=== PATIENT | male | born 1955 | race Caucasian/White ===

== ENCOUNTER → 2018-07-07 | Outpatient (CLI) | payer BC ==
[~2018-07-07] MED LIST: ASPI-586 PO; CATHETER FLUSH 10 ML SYR IV PRN; CEPH500C PO; EZET10TA23 PO; FAMO-119 PO; HYDR-3820; HYDR-3876 PO; HYDR12.56 PO; LOSA50TA6 PO; NIAC-4 PO; PRAV40TA PO; REGADENOSON 0.4 MG/5 ML SYR (LEXISCAN) IV ONE; SERT100T8 PO; TRAM-21 PO
[2018-07-07 07:57] VITALS: BP 159/91
[2018-07-07 08:08] VITALS: BP 155/95
--- NOTE | 2018-07-07 18:46 | STRESS TEST ---
DATE OF SERVICE: 07/07/2018 LEXISCAN MYOVIEW STRESS TEST REPORT Baseline heart rate is 70. Baseline blood pressure is 163/93. Baseline EKG is sinus rhythm with no ischemic changes. In summary, the patient was injected with 8.08 mCi of technetium-99 Myoview and the resting images were obtained. Then, the patient received 0.4 mg of Lexiscan followed by 28.6 mCi of technetium-99 Myoview. Throughout the test, there were no EKG changes. The resting and stress images were reviewed and compared in the short axis, horizontal long axis, and vertical long axis views. Review of the images showed diaphragmatic attenuation with mild decreased uptake involving the mid to apical inferior wall and inferolateral wall with subtle reversibility. SSS is 5, SDS 5, and TID value 1.0. On the gated images, the left ventricle appeared to be in normal size with normal contractility. Calculated ejection fraction is 60%. CONCLUSION: 1. The patient tolerated the Lexiscan well. 2. Diaphragmatic attenuation with mild decreased uptake involving the mid to apical inferior wall and inferolateral wall with mild reversibility, it could be secondary to the diaphragmatic attenuation. 3. Normal left ventricular size with normal contractility, no segmental wall motion abnormality, calculated ejection fraction 60%. Job ID: [id number] DocumentID: [id number] Dictated Date: 07/07/2018 15:56:59 Marketing Community Liaison Date: 07/07/2018 18:45:48 Dictated By: CARLITO CUELLO MD
== END ==
LOC: CARD 06:33
PROVIDERS: ATTEND Internal Medicine Cardiovascular Disease
DX: I10 Essential (primary) hypertension (principal); E78.2 Mixed hyperlipidemia; E66.9 Obesity, unspecified; Z82.49 Family history of ischemic heart disease and other diseases of the circulatory system; F32.9 Major depressive disorder, single episode, unspecified
CPT/HCPCS: 78452; 93017; 93306

== ENCOUNTER 2022-06-23 12:30 | Inpatient (IN) | payer MEDICARE, OTHER ==
[~2022-06-23] VITALS: Ht 160 cm; Wt 102.0 kg
[~2022-06-23 12:30] MED LIST changes: +ACHYD1T; -CATHETER FLUSH 10 ML SYR IV PRN; -HYDR-3820; -REGADENOSON 0.4 MG/5 ML SYR (LEXISCAN) IV ONE
--- NOTE | 2022-06-23 12:41 | ED GU-Male ---
General Chief Complaint: Abdominal/GI Problems Stated Complaint: N/V; FEVER; SUPRAPUBIC PAIN History of Present Illness Date Seen by Provider: Jun 23, 2022 Time Seen by Provider: 12:39 Initial Comments 67-year-old male presents with "feeling puny" patient reports that for the last 4 days he has had some nausea, vomiting, diarrhea, subjective fever and lower quadrant abdominal pain. He does have a history of diverticulitis. He reports that it seemed to start after he ate some solid. Patient was seen by urgent care yesterday and tested negative for influenza and COVID. Patient reports he has had numerous episodes of vomiting. No reports of cough or sore throat. Allergies and Home Medications Allergies Coded Allergies: clonidine (Unverified Allergy, Unknown, 12/18/14) lisinopril (Unverified Allergy, Unknown, 12/18/14) metoprolol (Unverified Allergy, Unknown, 12/18/14) Patient Home Medication List Home Medication List Reviewed: Yes Aspirin (Aspir 81) 81 Mg Tablet.dr, 81 MG PO, (Reported) Entered as Reported by: JESSICA LOO on 08/24/15 153 Famotidine (Pepcid) 20 Mg Tablet, 20 MG PO DAILY, (Reported) Entered as Reported by: KENDALL SNOWDEN on 12/18/14 1405 Hydrochlorothiazide (Hydrochlorothiazide) 12.5 Mg Tablet, 12.5 MG PO DAILY, (Reported) Entered as Reported by: KENDALL SNOWDEN on 12/18/14 1405 Hydrocodone Bit/Acetaminophen (HYDROcodone/APAP 10/325 TABLET) 1 Each Tablet, (Reported) Entered as Reported by: JESSICA LOO on 08/24/15 1537 Hydrocodone/Acetaminophen (Lorcet Hd 10-325 mg Tablet) 1 Each Tablet, 1-2 EACH PO Q4H PRN for PAIN Prescribed by: JARROD BOOTH on 12/25/14 0939 Losartan Potassium (Losartan Potassium) 50 Mg Tablet, 50 MG PO DAILY, (Reported) Entered as Reported by: KENDALL SNOWDEN on 12/18/14 1405 Niacin (Niacin ER) 500 Mg Tab.er.24h, 500 MG PO DAILY, (Reported) Entered as Reported by: KENDALL SNOWDEN on 12/18/14 1405 Pravastatin Sodium (Pravachol) 40 Mg Tablet, 40 MG PO DAILY, (Reported) Entered as Reported by: KENDALL SNOWDEN on 12/18/141404 Sertraline Hcl (Sertraline Hcl) 100 Mg Tablet, 100 MG PO DAILY, (Reported) Entered as Reported by: KENDALL SNOWDEN on 12/18/141404 Tramadol Hcl (Ultram) 50 Mg Tablet, 50 MG PO Q6H PRN for PAIN, (Reported) Entered as Reported by: KENDALL SNOWDEN on 12/18/141404 Review of Systems Review of Systems Constitutional: No chills; dizziness, fever, malaise EENTM: no symptoms reported Respiratory: no symptoms reported; No cough, No short of breath Cardiovascular: No chest pain, No palpitations Gastrointestinal: abdominal pain, diarrhea, nausea, vomiting Genitourinary: denies burning, denies frequency Musculoskeletal: no symptoms reported Skin: no symptoms reported Psychiatric/Neurological: No Symptoms Reported Endocrine: No Symptoms Reported Past [id number] Hx Past Medical History High Cholesterol, Hypertension Hearing Impairment: Denies Physical Exam Vital Signs Vital Signs - First Documented 06/23/22 12:37 Temp 36.1 Pulse 75 Resp 14 B/P (MAP) 97/49 (65) Pulse Ox 96 O2 Delivery Room Air Capillary Refill : Height, Weight, BMI Height: 5'5.00" Weight: 183lbs. oz. 83.752642hp; BMI Method: General Appearance: WD/WN, no apparent distress Cardiovascular: normal peripheral pulses, regular rate, rhythm Respiratory: lungs clear, normal breath sounds Gastrointestinal: soft; No distended, No guarding, No rebound; tenderness (Minimal bilateral lower quadrant) Extremities: normal range of motion, non-tender Neurologic/Psychiatric: normal mood/affect, oriented x 3 Skin: normal color, warm/dry Focused Exam Lactate Level 06/23/22 12:40: Lactic Acid Level 3.61*H 06/23/22 14:40: Lactic Acid Level 2.40*H Lactic Acid Level Laboratory Tests Test 06/23/22 12:40 06/23/22 14:40 Lactic Acid Level 3.61 MMOL/L (0.50-2.00) *H 2.40 MMOL/L (0.50-2.00) *H Progress/Results/Core Measures Suspected Sepsis SIRS Temperature: Pulse: Respiratory Rate: Laboratory Tests 06/23/22 12:40: White Blood Count 13.4H Blood Pressure / Mean: 06/23/22 12:40: Lactic Acid Level 3.61*H 06/23/22 14:40: Lactic Acid Level 2.40*H Laboratory Tests 06/23/22 12:40: Creatinine 1.50H, Platelet Count 102L, Total Bilirubin 1.6H Results/Orders Lab Results Laboratory Tests Test 06/23/22 10:26 06/23/22 12:40 06/23/22 14:40 Range/Units Urine Color YELLOW Urine Clarity CLEAR Urine pH 6.0 5-9 Urine Specific Douglas <=1.005 1.016-1.022 Urine Protein NEGATIVE NEGATIVE Urine Glucose (UA) NEGATIVE NEGATIVE Urine Ketones NEGATIVE NEGATIVE Urine Nitrite NEGATIVE NEGATIVE Urine Bilirubin NEGATIVE NEGATIVE Urine Urobilinogen 1.0 < = 1.0 MG/DL Urine Leukocyte Esterase NEGATIVE NEGATIVE Urine RBC (Auto) NEGATIVE NEGATIVE Urine RBC NONE /HPF Urine WBC 0-2 /HPF Urine Squamous Epithelial Cells 0-2 /HPF Urine Crystals NONE /LPF Urine Bacteria TRACE /HPF Urine Casts NONE /LPF Urine Mucus NEGATIVE /LPF Urine Culture Indicated NO White Blood Count 13.4 H 4.3-11.0 10^3/uL Red Blood Count 4.28 L 4.30-5.52 10^6/uL Hemoglobin 12.6 L 13.3-17.7 g/dL Hematocrit 35 L 40-54 % Mean Corpuscular Volume 82 80-99 fL Mean Corpuscular Hemoglobin 29 25-34 pg Mean Corpuscular Hemoglobin Concent 36 32-36 g/dL Red Cell Distribution Width 14.6 H 10.0-14.5 % Platelet Count 102 L 130-400 10^3/uL Mean Platelet Volume 11.7 9.0-12.2 fL Immature Granulocyte % (Auto) 1 % Neutrophils (%) (Auto) 91 H 42-75 % Lymphocytes (%) (Auto) 5 L 12-44 % Monocytes (%) (Auto) 3 0-12 % Eosinophils (%) (Auto) 0 0-10 % Basophils (%) (Auto) 0 0-10 % Neutrophils # (Auto) 12.2 H 1.8-7.8 10^3/uL Lymphocytes # (Auto) 0.6 L 1.0-4.0 10^3/uL Monocytes # (Auto) 0.4 0.0-1.0 10^3/uL Eosinophils # (Auto) 0.0 0.0-0.3 10^3/uL Basophils # (Auto) 0.0 0.0-0.1 10^3/uL Immature Granulocyte # (Auto) 0.1 0.0-0.1 10^3/uL Neutrophils % (Manual) 71 % Lymphocytes % (Manual) 7 % Monocytes % (Manual) 2 % Band Neutrophils 20 % Toxic Granulation 2+ Platelet Estimate DECREASED Percent Immature Platelet Fraction 8.3 H 0.0-7.6 % Blood Morphology Comment NORMAL Sodium Level 129 L 135-145 MMOL/L Potassium Level 3.1 L 3.6-5.0 MMOL/L Chloride Level 89 L 98-107 MMOL/L Carbon Dioxide Level 24 21-32 MMOL/L Anion Gap 16 H 5-14 MMOL/L Blood Urea Nitrogen 30 H 7-18 MG/DL Creatinine 1.50 H 0.60-1.30 MG/DL Estimat Glomerular Filtration Rate 51 BUN/Creatinine Ratio 20 Glucose Level 139 H 70-105 MG/DL Lactic Acid Level 3.61 *H 2.40 *H 0.50-2.00 MMOL/L Calcium Level 8.4 L 8.5-10.1 MG/DL Corrected Calcium 9.0 8.5-10.1 MG/DL Total Bilirubin 1.6 H 0.1-1.0 MG/DL Aspartate Amino Transf (AST/SGOT) 70 H 5-34 U/L Alanine Aminotransferase (ALT/SGPT) 41 0-55 U/L Alkaline Phosphatase 138 H 40-136 U/L C-Reactive Protein 32.65 H <0.50 MG/DL Total Protein 6.5 6.4-8.2 GM/DL Albumin 3.2 3.2-4.5 GM/DL My Orders Orders - STOVALL,DANII L DO Cbc With Automated Diff (06/23/22 12:47) Comprehensive Metabolic Panel (06/23/22 12:47) Lactic Acid Analyzer (06/23/22 12:47) Ua Culture If Indicated (06/23/22 12:47) Crp Fs (06/23/22 12:47) Ondansetron Injection (Zofran Injectio (06/23/22 13:00) Ns Iv 1000 Ml (Sodium Chloride 0.9%) (06/23/22 12:47) Manual Differential (06/23/22 12:40) Ns Iv 1000 Ml (Sodium Chloride 0.9%) (06/23/22 13:33) Ct Abdomen/Pelvis W (06/23/22 13:34) Iohexol Injection (Omnipaque 350 Mg/Ml 1 (06/23/22 13:45) Received Contrast (Hold Metformin- Contr (06/23/22 13:45) Ns (Ivpb) (Sodium Chloride 0.9% Ivpb Bag (06/23/22 13:45) Piperacillin Sodium/Tazobactam (Zosyn Vi (06/23/22 15:15) Heparin (Bolus Per Protocol) (Heparin (B (06/23/22 15:15) Protime With Inr (06/23/22 15:11) Partial Thromboplastin Time (06/23/22 15:11) Fentanyl Inj (Sublimaze Injection) (06/23/22 15:30) Ed Admission (Communication) (06/23/22 15:26) Medications Given in ED Current Medications Medications Dose Ordered Sig/[place] Route Start Time Stop Time Status Last Admin Dose Admin Iohexol 100 ml ONCE ONCE IV 06/23/22 13:45 06/23/22 13:46 DC 06/23/22 13:58 80 ML Ondansetron HCl 4 mg ONCE ONCE IVP 06/23/22 13:00 06/23/22 13:01 DC 06/23/22 12:54 4 MG Sodium Chloride 100 ml ONCE ONCE IV 06/23/22 13:45 06/23/22 13:46 DC 06/23/22 13:58 100 ML Vital Signs/I&O 06/23/22 06/23/22 12:37 14:29 Temp 36.1 36.1 Pulse 75 83 Resp 14 16 B/P (MAP) 97/49 (65) 97/60 Pulse Ox 96 95 O2 Delivery Room Air Room Air Capillary Refill : Progress Note : Progress Note Patient CT is consistent with diverticulitis along with a mesenteric vein thrombosis. Patient to be started on Zosyn along with heparin drip. Patient be admitted to ICU Dr. Fernandez with Dr. Pino consulting. Patient elevated lactic likely due to some dehydration that improved with IV fluids. Patient's blood pressure was initially a little soft but has improved with IV fluids. Patient stable and was transferred to [facility] by EMS. Departure Impression Primary Impression: Mesenteric vein thrombosis Additional Impression: Diverticulitis Disposition: 30 STILL A PATIENT Condition: Stable Admissions Decision to Admit/Date: Jun 23, 2022 Time/Decision to Admit Time: 15:28 Departure-Patient Inst. Referrals: LYNETTE ROBBINS APRN (PCP) Primary Care Physician [facility] (Family) Primary Care Physician DANII STOVALL DO Jun 23, 2022 12:41
[2022-06-23] MEDS ORDERED: NS IV 1000 ML 1,000 ML IV STA ×2 (12:47→13:33)
[2022-06-23] MEDS ORDERED: ONDANSETRON 4 MG/2 ML (SDV) Z0FRAN IVP ONE (13:00)
[2022-06-23 13:18] LABS: BASOPHILS % (AUTO) 0 % (0-10); EOSINOPHILS % (AUTO) 0 % (0-10); HEMATOCRIT 35 % (40-54); HEMOGLOBIN 12.6 g/dL (13.3-17.7); LYMPHOCYTES # (AUTO) 0.6 10^3/uL (1.0-4.0); LYMPHOCYTES % (AUTO) 5 % (12-44); MEAN CORPUSCULAR HEMOGLOBIN 29 pg (25-34); MEAN CORPUSCULAR HGB CONC 36 g/dL (32-36); MEAN CORPUSCULAR VOLUME 82 fL (80-99); MEAN PLATELET VOLUME 11.7 fL (9.0-12.2); MONOCYTES # (AUTO) 0.4 10^3/uL (0.0-1.0); MONOCYTES % (AUTO) 3 % (0-12); NEUTROPHILS # (AUTO) 12.2 10^3/uL (1.8-7.8); NEUTROPHILS % (AUTO) 91 % (42-75); PLATELET COUNT 102 10^3/uL (130-400); WHITE BLOOD COUNT 13.4 10^3/uL (4.3-11.0)
[2022-06-23 13:22] LABS: ALBUMIN 3.2 GM/DL (3.2-4.5); BILIRUBIN,TOTAL 1.6 MG/DL (0.1-1.0); CALCIUM 8.4 MG/DL (8.5-10.1); CREATININE SERUM 1.5 MG/DL (0.60-1.30); TOTAL PROTEIN 6.5 GM/DL (6.4-8.2)
[2022-06-23 13:25] LABS: POTASSIUM 3.1 MMOL/L (3.6-5.0)
[2022-06-23 13:36] LABS: BAND NEUTROPHILS 20 %; LYMPHOCYTES % (MANUAL) 7 %; MONOCYTES % (MANUAL) 2 %; NEUTROPHILS % (MANUAL) 71 %; PLATELET ESTIMATE DECREASED
[2022-06-23 13:37] LABS: RBC MORPH NORMAL; TOXIC GRANULATION/VACUOLAZATIO 2+
[2022-06-23] MEDS ORDERED: IOHEXOL 350 MG/ML 100 ML (OMNIPAQUE 350) VIAL IV ONE (13:45)
[2022-06-23] MEDS ORDERED: NS 100 ML (IVPB) BAG IV ONE (13:45)
[2022-06-23] MEDS ORDERED: HOLD METFORMIN - RECEIVED CONTRAST 20 ML VIAL IV SCH (13:45)
[2022-06-23 14:21] LABS: BILIRUBIN,URINE NEGATIVE (NEGATIVE); CLARITY,URINE CLEAR; COLOR,URINE YELLOW; GLUCOSE, URINE (UA) NEGATIVE (NEGATIVE); KETONES,URINE NEGATIVE (NEGATIVE); LEUKOCYTE ESTERASE ,URINE NEGATIVE (NEGATIVE); NITRITE,URINE NEGATIVE (NEGATIVE); PROTEIN,URINE NEGATIVE (NEGATIVE)
[2022-06-23 14:26] LABS: BACTERIA,URINE TRACE /HPF; SQUAMOUS EPITHELIAL CELL,UR 0-2 /HPF; WBC,URINE 0-2 /HPF
--- NOTE | 2022-06-23 14:32 | Diagnostic Imaging Report ---
PROCEDURE: CT abdomen and pelvis with contrast. TECHNIQUE: Multiple contiguous axial images were obtained through the abdomen and pelvis after administration of intravenous contrast. Auto Exposure Controls were utilized during the CT exam to meet ALARA standards for radiation dose reduction. All CT scans use one or more of the following dose optimizing techniques: automated exposure control, MA and/or KvP adjustment based on patient size and exam type or iterative reconstruction. INDICATION: Abdominal pain. FINDINGS: There is mild low density throughout the liver which is mildly enlarged. No gallbladder, pancreatic or adrenal gland abnormality is identified and the spleen is also unremarkable in appearance. There is no biliary ductal dilatation. Adrenal glands and kidneys reveal no focal abnormality and there is no evidence of nephrolithiasis. There is linear filling defect within the splenic vein near the confluence with portal vein resulting in narrowing of the lumen. There is also probable thrombophlebitis within left mesenteric venous branch demonstrating surrounding inflammation. There is extensive diverticular disease involving the sigmoid colon with mural thickening which may represent smooth muscle hyperplasia. No definite perforation or abscess is identified. Unopacified bladder is unremarkable in appearance. IMPRESSION: Inferior mesenteric thrombophlebitis in the left abdomen with partial splenic venous thrombus may contribute to patient's symptoms. There is no evidence of portal venous proper or portal venous confluence thrombosis. There is mild hepatomegaly and hepatic steatosis. Sigmoid diverticular disease with mural thickening of the sigmoid colon. Dictated by: Dictated on workstation # [id number]
[2022-06-23] MEDS ORDERED: HEParin 1000 UNIT/ML (10ML VIAL) FOR BOLUS IV ONE (15:15)
[2022-06-23] MEDS ORDERED: PIPERACILLIN SODIUM/TAZOBACTAM 4.5 GM in NS (IVPB) 100 ML IV ONE (15:15)
[2022-06-23] MEDS ORDERED: fentaNYL INJ 100 MCG/2 ML AMP IVP ONE (15:30)
[2022-06-23] MEDS ORDERED: NS IV 1000 ML 1,000 ML IV SCH (15:30)
[2022-06-23] MEDS ORDERED: NS IV 500 ML 500 ML IV PRN ×2 (15:30→19:00)
[2022-06-23] MEDS ORDERED: HEParin 1000 UNIT/ML (10ML VIAL) FOR BOLUS IV SCH (15:30)
[2022-06-23] MEDS ORDERED: HEParin DRIP 25000 UNIT/500ML 500 ML IV SCH (15:30)
[2022-06-23 15:44] LABS: INR 1.1 (0.8-1.4); PROTHROMBIN TIME PATIENT 14.3 SEC (12.2-14.7)
[2022-06-23] MEDS ORDERED: HEParin DRIP 25000 UNIT/500ML 500 ML IV ONE (15:45)
--- NOTE | 2022-06-23 19:00 | Consultation - Surgery ---
BIPIN URBINA 06/23/22 1900: History of Present Illness History of Present Illness Patient Consulted On(tiana/time) 06/23/22 18:54 Date Seen by Provider: Jun 23, 2022 Time Seen by Provider: 18:54 History of Present Illness 67 M with a hx of diverticulitis was admitted from [facility] [place] for lactic acidosis and inferior mesenteric venousphlebitis. Pt reports for past 4 days has had uncontrollable N/V with associated diarrhea after he ate a salad for dinner. Claims Rt and Lt lower abdominal pain that waxes and wanes feeling like a sharp stab rated 4/10 at best and 8/10 at worst. Pt denies anything that alleviates or aggravates the pain. Pt reports fever and chills upon onset of pain flares. denies sob, chest pain, or soar throat. Pt last had a colonoscopy "over 10 years ago" requiring a polypectomy but unsure of any details. Allergies and Home Medications Allergies Coded Allergies: clonidine (Unverified Allergy, Unknown, 12/18/14) lisinopril (Unverified Allergy, Unknown, 12/18/14) metoprolol (Unverified Allergy, Unknown, 12/18/14) Patient Home Medication List Home Medication List Reviewed: Yes Aspirin (Aspir 81) 81 Mg Tablet.dr, 81 MG PO, (Reported) Entered as Reported by: JESSICA LOO on 08/24/15 1537 Famotidine (Pepcid) 20 Mg Tablet, 20 MG PO DAILY, (Reported) Entered as Reported by: KENDALL SNOWDEN on 12/18/14 1405 Hydrochlorothiazide (Hydrochlorothiazide) 12.5 Mg Tablet, 12.5 MG PO DAILY, (Reported) Entered as Reported by: KENDALL SNOWDEN on 12/18/14 1405 Hydrocodone Bit/Acetaminophen (HYDROcodone/APAP 10/325 TABLET) 1 Each Tablet, (R eported) Entered as Reported by: JESSICA LOO on 08/24/15 1537 Hydrocodone/Acetaminophen (Lorcet Hd 10-325 mg Tablet) 1 Each Tablet, 1-2 EACH PO Q4H PRN for PAIN Prescribed by: JARROD BOOTH on 12/25/14 0939 Losartan Potassium (Losartan Potassium) 50 Mg Tablet, 50 MG PO DAILY, (Reported) Entered as Reported by: KENDALL SNOWDEN on 12/18/14 140 Niacin (Niacin ER) 500 Mg Tab.er.24h, 500 MG PO DAILY, (Reported) Entered as Reported by: KENDALL SNOWDEN on 12/18/14 140 Pravastatin Sodium (Pravachol) 40 Mg Tablet, 40 MG PO DAILY, (Reported) Entered as Reported by: KENDALL SNOWDEN on 12/18/14 140 Sertraline Hcl (Sertraline Hcl) 100 Mg Tablet, 100 MG PO DAILY, (Reported) Entered as Reported by: KENDALL SNOWDEN on 12/18/14 140 Tramadol Hcl (Ultram) 50 Mg Tablet, 50 MG PO Q6H PRN for PAIN, (Reported) Entered as Reported by: KENDALL SNOWDEN on 12/18/14 140 Past [place]-Rdejmq Hx Patient Social History Alcohol Use?: No Have you traveled recently?: No Surgeries History of Surgeries: Yes Surgeries: Joint Replacement, Orthopedic Cardiovascular Cardiac Disorders: High Cholesterol, Hypertension HEENT Hearing Impairment: Denies Cancer History of Cancer: No Family Medical History Significant Family History: Cancer (lymphoma in Mother and Father), COPD (sister) Review of Systems-General Constitutional: chills, diaphoresis, fever, malaise, weakness EENTM: No blurred vision, No vision loss, No throat pain Respiratory: No cough, No short of breath Cardiovascular: No chest pain, No palpitations Gastrointestinal: abdominal pain (LLQ and RLQ), diarrhea; No hematemesis, No melena; nausea, vomiting Genitourinary: No decreased output, No dysuria, No frequency Musculoskeletal: No muscle pain, No muscle weakness Skin: No lesions, No rash Psychiatric/Neurological: No Symptoms Reported Physical Exam-General Problems Physical Exam Vital Signs Vital Signs - First Documented 06/23/22 12:37 Temp 36.1 Pulse 75 Resp 14 B/P (MAP) 97/49 (65) Pulse Ox 96 O2 Delivery Room Air Capillary Refill : Less Than 3 Seconds General Appearance: WD/WN, no apparent distress Eyes: Bilateral Eye PERRL, Bilateral Eye EOMI HEENT: PERRL/EOMI; No pale conjunctivae (R), No pale conjunctivae (L) Neck: non-tender, supple Respiratory: chest non-tender, lungs clear, normal breath sounds, no respi ratory distress, no accessory muscle use Cardiovascular: regular rate, rhythm, no edema, no murmur Peripheral Pulses: 3+ Dorsalis Pedis (R), 3+ Left Dors-Pedis (L), 3+ Radial Pulses (R), 3+ Radial Pulses (L) Gastrointestinal: normal bowel sounds, no organomegaly, no pulsatile mass, tenderness (RLQ and LLQ) Back: normal inspection, no CVA tenderness Extremities: no pedal edema, no calf tenderness Neurologic/Psychiatric: alert, normal mood/affect, oriented x 3 Skin: normal color, warm/dry Lymphatic: no adenopathy Data Review Labs Laboratory Tests 06/23/22 10:26: Urine Color YELLOW, Urine Clarity CLEAR, Urine pH 6.0, Urine Specific [place] <=1.005, Urine Protein NEGATIVE, Urine Glucose (UA) NEGATIVE, Urine Ketones NEGATIVE, Urine Nitrite NEGATIVE, Urine Bilirubin NEGATIVE, Urine Urobilinogen 1.0, Urine Leukocyte Esterase NEGATIVE, Urine RBC (Auto) NEGATIVE, Urine RBC NONE, Urine WBC 0-2, Urine Squamous Epithelial Cells 0-2, Urine Crystals NONE, Urine Bacteria TRACE, Urine Casts NONE, Urine Mucus NEGATIVE, Urine Culture Indicated NO 06/23/22 12:40: White Blood Count 13.4H, Red Blood Count 4.28L, Hemoglobin 12.6L, Hematocrit 35L , Mean Corpuscular Volume 82, Mean Corpuscular Hemoglobin 29, Mean Corpuscular Hemoglobin Concent 36, Red Cell Distribution Width 14.6H, Platelet Count 102L, Mean Platelet Volume 11.7, Immature Granulocyte % (Auto) 1, Neutrophils (%) (Auto) 91H, Lymphocytes (%) (Auto) 5L, Monocytes (%) (Auto) 3, Eosinophils (%) (Auto) 0, Basophils (%) (Auto) 0, Neutrophils # (Auto) 12.2H, Lymphocytes # (Auto) 0.6L, Monocytes # (Auto) 0.4, Eosinophils # (Auto) 0.0, Basophils # (Auto) 0.0, Immature Granulocyte # (Auto) 0.1, Neutrophils % (Manual) 71, Lymphocytes % (Manual) 7, Monocytes % (Manual) 2, Band Neutrophils 20, Toxic Granulation 2+, Platelet Estimate DECREASED, Percent Immature Platelet Fraction 8.3H, Blood Morphology Comment NORMAL, Prothrombin Time 14.3, INR Comment 1.1, Activated Partial Thromboplast Time 29, Sodium Level 129L, Potassium Level 3.1L, Chloride Level 89L, Carbon Dioxide Level 24, Anion Gap 16H, Blood Urea Nitrogen 30H, Creatinine 1.50H, Estimat Glomerular Filtration Rate 51, BUN/Creatinine Ratio 20, Glucose Level 139H, Lactic Acid Level 3.61*H, Calcium Level 8.4L, Corrected Calcium 9.0, Total Bilirubin 1.6H, Aspartate Amino Transf (AST/SGOT) 70H, Alanine Aminotransferase (ALT/SGPT) 41, Alkaline Phosphatase 138H, C- Reactive Protein 32.65H, Total Protein 6.5, Albumin 3.2 06/23/22 14:40: Lactic Acid Level 2.40*H Assessment/Plan Assessment/Plan Assessment/Plan inf. mesenteric venousphlebitis RLQ and LLQ abdominal pain N/V diarrhea Continue IV fluids continue heparin bolus continue IV Zosyn repeat CBC CMP NPO Zofran PRN pain medications PRN DINAH VELASQUEZ DO 06/23/222107: History of Present Illness History of Present Illness History of Present Illness Consult requested by Dr. Fernandez for abdominal pain/inferior mesenteric venous phlebitis. Patient is a 67-year-old male who has had recent diverticulitis. He has had 4 days of pain in the left lower quadrant. It waxes and wanes. Also sharp pain that he states that the worst was 8 out of 10. Currently is at a 4 out of 10. Patient has been having diarrhea and having some nausea and emesis. Patient believes symptoms started after eating a salad. Not been able to really tolerate much with diet. Due to things not improving he went to the emergency department for further evaluation. He states his last colonoscopy was about 10 years ago which she had a polypectomy performed. Patient had a CT scan performed noting; Inferior mesenteric thrombophlebitis in the left abdomen with partial splenic venous thrombus may contribute to patient's symptoms. There is no evidence of portal venous proper or portal venous confluence thrombosis. There is mild hepatomegaly and hepatic steatosis. Sigmoid diverticular disease with mural thickening of the sigmoid colon. Allergies and Home Medications Allergies Coded Allergies: clonidine (Unverified Allergy, Unknown, 12/18/14) lisinopril (Unverified Allergy, Unknown, 12/18/14) metoprolol (Unverified Allergy, Unknown, 12/18/14) Patient Home Medication List Home Medication List Reviewed: Yes Aspirin (Aspir 81) 81 Mg Tablet.dr, 81 MG PO, (Reported) Entered as Reported by: JESSICA LOO on 08/24/15 153 Famotidine (Pepcid) 20 Mg Tablet, 20 MG PO DAILY, (Reported) Entered as Reported by: KENDALL SNOWDEN on 12/18/14 140 Hydrochlorothiazide (Hydrochlorothiazide) 12.5 Mg Tablet, 12.5 MG PO DAILY, (Reported) Entered as Reported by: KENDALL SNOWDEN on 12/18/14 140 Hydrocodone Bit/Acetaminophen (HYDROcodone/APAP 10/325 TABLET) 1 Each Tablet, (Reported) Entered as Reported by: JESSICA LOO on 08/24/15 153 Hydrocodone/Acetaminophen (Lorcet Hd 10-325 mg Tablet) 1 Each Tablet, 1-2 EACH PO Q4H PRN for PAIN Prescribed by: JARROD BOOTH on 12/25/14 0939 Losartan Potassium (Losartan Potassium) 50 Mg Tablet, 50 MG PO DAILY, (Reported) Entered as Reported by: KENDALL SNOWDEN on 12/18/14 140 Niacin (Niacin ER) 500 Mg Tab.er.24h, 500 MG PO DAILY, (Reported) Entered as Reported by: KENDALL SNOWDEN on 12/18/14 140 Pravastatin Sodium (Pravachol) 40 Mg Tablet, 40 MG PO DAILY, (Reported) Entered as Reported by: KENDALL SNOWDEN on 12/18/14 140 Sertraline Hcl (Sertraline Hcl) 100 Mg Tablet, 100 MG PO DAILY, (Reported) Entered as Reported by: KENDALL SNOWDEN on 12/18/14 140 Tramadol Hcl (Ultram) 50 Mg Tablet, 50 MG PO Q6H PRN for PAIN, (Reported) Entered as Reported by: KENDALL SNOWDEN on 12/18/141404 Past [place]-Aspdfw-Vinwbr Hx Reviewed Nursing Assessment Reviewed/Agree w Nursing PMH: Yes Family Medical History Significant Family History: No Pertinent Family Hx Review of Systems-General Constitutional: chills, diaphoresis, fever; No malaise; weakness EENTM: No blurred vision, No vision loss Respiratory: No cough, No short of breath Cardiovascular: No chest pain, No palpitations Gastrointestinal: abdominal pain (LLQ), diarrhea; No melena; nausea, vomiting Genitourinary: No decreased output, No dysuria, No frequency Musculoskeletal: No muscle pain, No muscle weakness Skin: No change in color, No rash Psychiatric/Neurological: Denies Anxiety, Denies Depressed, Denies Emotional Pr oblems All Other Systems Reviewed Negative Unless Noted: Yes (Negative excepted noted.) Physical Exam-General Problems Physical Exam General Appearance: WD/WN, no apparent distress HEENT: PERRL/EOMI, normal ENT inspection Neck: non-tender, supple Respiratory: chest non-tender, no respiratory distress, no accessory muscle use Cardiovascular: regular rate, rhythm, no JVD Gastrointestinal: soft, tenderness (RLQ and LLQ) Rectal: deferred Back: no CVA tenderness, no vertebral tenderness Extremities: non-tender, no pedal edema, no calf tenderness Neurologic/Psychiatric: alert, normal mood/affect, oriented x 3 Skin: normal color, warm/dry Lymphatic: no adenopathy Assessment/Plan Assessment/Plan Assessment/Plan inf. mesenteric venousphlebitis RLQ and LLQ abdominal pain N/V diarrhea Mural thickening of sigmoid colon Continue IV fluids continue heparin bolus continue IV Zosyn repeat CBC CMP NPO Zofran PRN pain medications PRN Discussed patient ct scan findings and need for anticoagulation. Symptoms could worsen and bowel has potential of being ischemic needing surgical intervention currently I do not feel he is ischemic and hopeful anticoagulation will be beneficial. Patient understands plan. Supervisory-Addendum Brief Verification & Attestation Participated in pt care: history, MDM, physical Personally performed: exam, history, MDM, supervision of care Care discussed with: Medical Student Procedures: n/a Results interpretation: Verified all documentation Verification and Attestation of Medical Student E/M Service A medical student performed and documented this service in my presence. I reviewed and verified all information documented by the medical student and made modifications to such information, when appropriate. I personally performed the physical exam and medical decision making. Dinah Velasquez, Jun 23, 2022,21:08 BIPIN URBINA Jun 23, 2022 19:00 DINAH VELASQUEZ DO Jun 23, 2022 21:08
[2022-06-23] MEDS: NS IV 1000 ML 1,000 ML IV SCH (19:44)
--- NOTE | 2022-06-23 20:23 | Tele-ICU Progress Note ---
Progress Note 67M with h/o diverticulitis, HTN, HLD transferred from [place] with findings of inferior mesenteric venous phlebitis. Surgery consulted. Patient will be monitored on heparin gtt overnight and reassessed by surgery in AM. Will trend lactics, had been downtrending prior to leaving [place]. Zosyn initiated. Otherwise supportive care, pain control. BP improved with IVF, continue to monitor. Focused Exam Lactate Level 06/23/22 12:40: Lactic Acid Level 3.61*H 06/23/22 14:40: Lactic Acid Level 2.40*H Height, Weight, BMI Height: 5'5.00" Weight: 183lbs. oz. 83.545880sr; BMI Method: GULSHAN QUINONES MD Jun 23, 2022 20:23
[2022-06-23] MEDS ORDERED: ONDANSETRON 4 MG/2 ML (SDV) Z0FRAN IVP PRN (20:30)
[2022-06-23] MEDS ORDERED: fentaNYL INJ 100 MCG/2 ML AMP ONE (21:04)
[2022-06-23] MEDS: fentaNYL INJ 100 MCG/2 ML AMP IVP PRN (21:06)
[2022-06-23] MEDS ORDERED: NS (IVPB) 100 ML ONE (21:14)
[2022-06-23] MEDS ORDERED: PIPERACILLIN/TAZO 4.5 GM VIAL (ZOSYN) IV ONE (21:14)
[2022-06-23] MEDS: PIPERACILLIN SODIUM/TAZOBACTAM 4.5 GM in NS (IVPB) 100 ML IV SCH (21:21)
[2022-06-24] MEDS ORDERED: HEParin 1000 UNIT/ML (10ML VIAL) FOR BOLUS IV SCH (02:45)
[2022-06-24] MEDS: NS IV 1000 ML 1,000 ML IV SCH ×3 (02:46→20:54)
[2022-06-24 05:08] LABS: BASOPHILS # (AUTO) 0.1 10^3/uL (0.0-0.1); BASOPHILS % (AUTO) 0 % (0-10); EOSINOPHILS # (AUTO) 0.1 10^3/uL (0.0-0.3); EOSINOPHILS % (AUTO) 0 % (0-10); HEMATOCRIT 32 % (40-54); HEMOGLOBIN 10.9 g/dL (13.3-17.7); LYMPHOCYTES # (AUTO) 0.9 10^3/uL (1.0-4.0); LYMPHOCYTES % (AUTO) 8 % (12-44); MEAN CORPUSCULAR HEMOGLOBIN 29 pg (25-34); MEAN CORPUSCULAR HGB CONC 35 g/dL (32-36); MEAN CORPUSCULAR VOLUME 84 fL (80-99); MEAN PLATELET VOLUME 12.2 fL (9.0-12.2); MONOCYTES # (AUTO) 0.8 10^3/uL (0.0-1.0); MONOCYTES % (AUTO) 7 % (0-12); NEUTROPHILS # (AUTO) 9.3 10^3/uL (1.8-7.8); NEUTROPHILS % (AUTO) 82 % (42-75); PLATELET COUNT 86 10^3/uL (130-400); WHITE BLOOD COUNT 11.3 10^3/uL (4.3-11.0)
[2022-06-24 05:21] LABS: ALBUMIN 2.7 GM/DL (3.2-4.5)
[2022-06-24 05:23] LABS: CALCIUM 7.7 MG/DL (8.5-10.1)
[2022-06-24 05:24] LABS: TOTAL PROTEIN 5.5 GM/DL (6.4-8.2)
[2022-06-24 05:26] LABS: BILIRUBIN,TOTAL 2.1 MG/DL (0.1-1.0)
[2022-06-24 05:27] LABS: PHOSPHORUS 1.8 MG/DL (2.3-4.7)
[2022-06-24 05:28] LABS: CREATININE SERUM 1.33 MG/DL (0.60-1.30)
[2022-06-24] MEDS: PIPERACILLIN SODIUM/TAZOBACTAM 4.5 GM in NS (IVPB) 100 ML IV SCH ×3 (05:32→20:54)
[2022-06-24] MEDS: fentaNYL INJ 100 MCG/2 ML AMP IVP PRN ×4 (05:34→17:02)
[2022-06-24] MEDS: POTASSIUM CL 10MEQ/50ML IVPB 50 ML IV SCH ×10 (05:40→19:45)
[2022-06-24] MEDS: MAGNESIUM 1 GM/100 ML IVPB 100 ML IV SCH (05:40)
[2022-06-24] MEDS: KCL 20 MEQ TAB (K-DUR) PO SCH (05:40)
[2022-06-24] MEDS ORDERED: POTASSIUM CL 10MEQ/50ML IVPB 250 ML IV ONE (05:45)
[2022-06-24] MEDS ORDERED: MAGNESIUM 1 GM/100 ML IVPB 100 ML IV SCH (06:00)
[2022-06-24] MEDS ORDERED: POTASSIUM CL 10MEQ/50ML IVPB 50 ML IV SCH (06:00)
[2022-06-24] MEDS ORDERED: KCL 20 MEQ TAB (K-DUR) PO SCH (06:00)
--- NOTE | 2022-06-24 07:25 | Progress Note - Surgery ---
BIPIN URBINA 06/24/22 0725: Subjective Date Seen by a Provider: Jun 24, 2022 Time Seen by a Provider: 07:10 Subjective/Events-last exam 67 M on day 2 of admission for inf mesenteric venous phlebitis and lactic acidosis resting comfortably in bed. Pt reports no change in diffuse lower abdominal pain rating 4-8/10 that is non-radiating. pt claims new onset of burning with urination and denies any BM since admission. pt reports improvement in N/V and denies any chest kitchen, fever, sob, or lightheadedness. Review of Systems General: No Chills, No Night Sweats HEENT: No Head Aches, No Visual Changes Pulmonary: No Dyspnea, No Cough Cardiovascular: No: Chest Pain, Lt Headedness Gastrointestinal: Abdominal Pain (RLQ and LLQ); No: Nausea, Vomiting Genitourinary: Dysuria; No Frequency Musculoskeletal: neck pain, leg pain Neurological: Numbness (rt lateral hip ); No: Weakness, Change in speech Focused Exam Lactate Level 06/23/22 12:40: Lactic Acid Level 3.61*H 06/23/22 14:40: Lactic Acid Level 2.40*H 06/23/22 21:10: Lactic Acid Level 1.37 Objective Exam Vital Signs Date Time Temp Pulse Resp B/P (MAP) Pulse Ox O2 Delivery O2 Flow Rate FiO2 06/24/22 06:00 73 11 98/58 (71) 93 Room Air 06/24/22 05:00 68 13 99/61 (74) 93 Room Air 06/24/22 04:00 69 22 112/64 (80) 92 Room Air 06/24/22 03:02 98 Room Air 06/24/22 03:01 37.0 Room Air 06/24/22 03:00 89 20 89/43 (58) 93 Room Air 06/24/22 02:00 73 20 102/56 (71) 92 Room Air 06/24/22 01:00 72 23 108/76 (87) 93 Room Air 06/24/22 01:00 73 06/24/22 00:00 98 Room Air 06/24/22 00:00 37.0 Room Air 06/24/22 00:00 70 22 101/52 (68) 94 Room Air 06/23/22 23:00 73 20 100/62 (75) 92 Room Air 06/23/22 22:00 79 23 97/54 (68) 91 Room Air 06/23/22 21:30 98 Room Air 06/23/22 21:00 80 19 104/61 (75) 94 Room Air 06/23/22 20:00 80 20 99/48 (65) 94 Room Air 06/23/22 20:00 37.2 06/23/22 19:30 37.1 Room Air 06/23/22 19:00 82 21 95/52 (66) 94 Room Air 06/23/22 19:00 98 Room Air 06/23/22 19:00 81 06/23/22 18:45 88 17 126/84 (98) 91 Room Air 06/23/22 18:45 88 06/23/22 17:04 36.1 88 16 100/51 95 Room Air 06/23/22 14:29 36.1 83 16 97/60 95 Room Air 06/23/22 12:37 36.1 75 14 97/49 (65) 96 Room Air I & O 06/24/22 07:00 Intake Total 3200 ml Output Total 1250 ml Balance 1950 ml Capillary Refill : Less Than 3 Seconds General Appearance: No Apparent Distress, WD/WN HEENT: PERRL/EOMI, Moist Mucous Membranes Neck: Normal Inspection, Supple Respiratory: Chest Non Tender, Lungs Clear, Normal Breath Sounds, No Accessory Muscle Use, No Respiratory Distress Cardiovascular: Regular Rate, Rhythm, No Edema, No Murmur, Normal Peripheral Pulses Peripheral Pulses: 3+ Dorsalis Pedis (R), 3+ Left Dors-Pedis (L), 3+ Radial Pulses (R), 3+ Radial Pulses (L) Gastrointestinal: soft, tenderness (RLQ and LLQ) Extremity: Normal Inspection, No Calf Tenderness, No Pedal Edema Neurologic/Psychiatric: Alert, Oriented x3, Normal Mood/Affect Skin: Normal Color, Warm/Dry Lymphatic: No Adenopathy Results Lab Laboratory Tests 06/23/22 10:26: Urine Color YELLOW, Urine Clarity CLEAR, Urine pH 6.0, Urine Specific [place] <=1.005, Urine Protein NEGATIVE, Urine Glucose (UA) NEGATIVE, Urine Ketones NEGATIVE, Urine Nitrite NEGATIVE, Urine Bilirubin NEGATIVE, Urine Urobilinogen 1.0, Urine Leukocyte Esterase NEGATIVE, Urine RBC (Auto) NEGATIVE, Urine RBC NONE, Urine WBC 0-2, Urine Squamous Epithelial Cells 0-2, Urine Crystals NONE, Urine Bacteria TRACE, Urine Casts NONE, Urine Mucus NEGATIVE, Urine Culture Indicated NO 06/23/22 12:40: White Blood Count 13.4H, Red Blood Count 4.28L, Hemoglobin 12.6L, Hematocrit 35L , Mean Corpuscular Volume 82, Mean Corpuscular Hemoglobin 29, Mean Corpuscular Hemoglobin Concent 36, Red Cell Distribution Width 14.6H, Platelet Count 102L, Mean Platelet Volume 11.7, Immature Granulocyte % (Auto) 1, Neutrophils (%) (Auto) 91H, Lymphocytes (%) (Auto) 5L, Monocytes (%) (Auto) 3, Eosinophils (%) (Auto) 0, Basophils (%) (Auto) 0, Neutrophils # (Auto) 12.2H, Lymphocytes # (Au to) 0.6L, Monocytes # (Auto) 0.4, Eosinophils # (Auto) 0.0, Basophils # (Auto) 0.0, Immature Granulocyte # (Auto) 0.1, Neutrophils % (Manual) 71, Lymphocytes % (Manual) 7, Monocytes % (Manual) 2, Band Neutrophils 20, Toxic Granulation 2+, Platelet Estimate DECREASED, Percent Immature Platelet Fraction 8.3H, Blood Morphology Comment NORMAL, Prothrombin Time 14.3, INR Comment 1.1, Activated Partial Thromboplast Time 29, Sodium Level 129L, Potassium Level 3.1L, Chloride Level 89L, Carbon Dioxide Level 24, Anion Gap 16H, Blood Urea Nitrogen 30H, Creatinine 1.50H, Estimat Glomerular Filtration Rate 51, BUN/Creatinine Ratio 20, Glucose Level 139H, Lactic Acid Level 3.61*H, Calcium Level 8.4L, Corrected Calcium 9.0, Total Bilirubin 1.6H, Aspartate Amino Transf (AST/SGOT) 70H, Alanine Aminotransferase (ALT/SGPT) 41, Alkaline Phosphatase 138H, C-Reactive Protein 32.65H, Total Protein 6.5, Albumin 3.2 06/23/22 14:40: Lactic Acid Level 2.40*H 06/23/22 19:58: Activated Partial Thromboplast Time 50H 06/23/22 21:10: Lactic Acid Level 1.37 06/24/22 01:45: Activated Partial Thromboplast Time 46H 06/24/22 04:45: White Blood Count 11.3H, Red Blood Count 3.76L, Hemoglobin 10.9L, Hematocrit 32L , Mean Corpuscular Volume 84, Mean Corpuscular Hemoglobin 29, Mean Corpuscular Hemoglobin Concent 35, Red Cell Distribution Width 14.7H, Platelet Count 86L, Mean Platelet Volume 12.2, Immature Granulocyte % (Auto) 1, Neutrophils (%) (Auto) 82H, Lymphocytes (%) (Auto) 8L, Monocytes (%) (Auto) 7, Eosinophils (%) (Auto) 0, Basophils (%) (Auto) 0, Neutrophils # (Auto) 9.3H, Lymphocytes # (Auto) 0.9L, Monocytes # (Auto) 0.8, Eosinophils # (Auto) 0.1, Basophils # (Auto) 0.1, Immature Granulocyte # (Auto) 0.2H, Sodium Level 134L, Potassium Level 3.0L, Chloride Level 101, Carbon Dioxide Level 22, Anion Gap 11, Blood Urea Nitrogen 27H, Creatinine 1.33H, Estimat Glomerular Filtration Rate 59, BUN/Creatinine Ratio 20, Glucose Level 99, Calcium Level 7.7L, Corrected Calcium 8.7, Phosphorus Level 1.8L, Magnesium Level 2.2, Total Bilirubin 2.1H, Aspartate Amino Transf (AST/SGOT) 72H, Alanine Aminotransferase (ALT/SGPT) 44, Alkaline Phosphatase 90, Total Protein 5.5L, Albumin 2.7L Assessment/Plan Assessment/Plan Assessment/Plan inf. mesenteric venousphlebitis RLQ and LLQ abdominal pain N/V diarrhea Mural thickening of sigmoid colon Continue IV fluids continue heparin bolus continue IV Zosyn repeat CBC CMP continue NPO Zofran PRN pain medications PRN Discussed patient ct scan findings and need for anticoagulation. Symptoms could worsen and bowel has potential of being ischemic needing surgical intervention currently I do not feel he is ischemic and hopeful anticoagulation will be beneficial. Patient understands plan. blood cultures pending repeat UA with Urine Cx serial abdominal exams, coag studies DINAH PINO DO 06/25/22 1736: Subjective Subjective/Events-last exam patient feeling little better today. Still with pain in the lower abdomen which she rates at about a 4-8 out of 10. Nonradiating. Patient feeling little bit better than yesterday. He is currently n.p.o. He is on heparin drip. Nausea and vomiting improved. Denies nausea vomiting fever sweats chills shortness of breath or chest pain at this time. Objective Exam General Appearance: No Apparent Distress, WD/WN HEENT: PERRL/EOMI, Moist Mucous Membranes Neck: Normal Inspection, Supple Respiratory: Chest Non Tender, No Accessory Muscle Use, No Respiratory Distress Cardiovascular: Regular Rate, Rhythm, No JVD Gastrointestinal: soft, tenderness (RLQ and LLQ) Extremity: Normal Inspection, No Calf Tenderness Neurologic/Psychiatric: Alert, Oriented x3, Normal Mood/Affect Skin: Normal Color, Warm/Dry Lymphatic: No Adenopathy Assessment/Plan Assessment/Plan Assessment/Plan inf. mesenteric venousphlebitis RLQ and LLQ abdominal pain N/V diarrhea Mural thickening of sigmoid colon Continue IV fluids continue heparin will need 6 months anticoagulation. continue IV Zosyn repeat labs sips of clears Zofran PRN pain medications PRN Discussed patient ct scan findings and need for anticoagulation. Symptoms could worsen and bowel has potential of being ischemic needing surgical intervention currently I do not feel he is ischemic and hopeful anticoagulation will be beneficial. Patient understands plan. Supervisory-Addendum Brief Verification & Attestation Participated in pt care: history, MDM, physical Personally performed: exam, history, MDM, supervision of care Care discussed with: Medical Student Procedures: n/a Results interpretation: Verified all documentation Verification and Attestation of Medical Student E/M Service A medical student performed and documented this service in my presence. I reviewed and verified all information documented by the medical student and made modifications to such information, when appropriate. I personally performed the physical exam and medical decision making. Dinah Pino, Jun 24, 2022,17:35 BIPIN URBINA Jun 24, 2022 07:25 DINAH PINO DO Jun 25, 2022 17:36
[2022-06-24] MEDS ORDERED: ASPI-1238 PO (09:52)
[2022-06-24] MEDS ORDERED: FAMO20TA3 PO (09:52)
[2022-06-24] MEDS ORDERED: EZET10TA49 PO (09:52)
[2022-06-24] MEDS ORDERED: ONDA4TAB11 PO (09:52)
[2022-06-24] MEDS ORDERED: METH454P2 PO (09:52)
[2022-06-24] MEDS ORDERED: PRAV40TA2 PO (09:52)
[2022-06-24] MEDS ORDERED: SERT-414 PO (09:52)
[2022-06-24] MEDS ORDERED: HYDR-3820 PO (09:52)
[2022-06-24] MEDS ORDERED: IBUP-2185 PO (09:52)
[2022-06-24] MEDS ORDERED: LOSA100T57 PO (09:52)
[2022-06-24] MEDS ORDERED: HYDR25TA4 PO (09:52)
[2022-06-24] MEDS: HEParin 1000 UNIT/ML (10ML VIAL) FOR BOLUS IV SCH ×2 (10:18→19:55)
--- NOTE | 2022-06-24 10:22 | Tele-ICU Progress Note ---
Subjective Date Seen by a Provider: Jun 24, 2022 Time Seen by a Provider: 10:22 Sepsis Event Evaluation Height, Weight, BMI Height: 5'5.00" Weight: 183lbs. oz. 83.599250pc; 36.05 BMI Method: Focused Exam Lactate Level 06/23/22 12:40: Lactic Acid Level 3.61*H 06/23/22 14:40: Lactic Acid Level 2.40*H 06/23/22 21:10: Lactic Acid Level 1.37 Exam Exam Patient acknowledged, consented, and participated in this virtual visit which was conducted using real time audio/video Vital Signs Date Time Temp Pulse Resp B/P (MAP) Pulse Ox O2 Delivery O2 Flow Rate FiO2 06/24/22 09:00 65 19 111/68 (82) 95 Room Air 06/24/22 08:00 65 18 105/63 (77) 93 Room Air 06/24/22 08:00 Room Air 06/24/22 07:25 36.7 06/24/22 07:00 64 06/24/22 07:00 64 17 100/60 (73) 94 Room Air 06/24/22 06:00 73 11 98/58 (71) 93 Room Air 06/24/22 05:00 68 13 99/61 (74) 93 Room Air 06/24/22 04:00 69 22 112/64 (80) 92 Room Air 06/24/22 03:02 98 Room Air 06/24/22 03:01 37.0 Room Air 06/24/22 03:00 89 20 89/43 (58) 93 Room Air 06/24/22 02:00 73 20 102/56 (71) 92 Room Air 06/24/22 01:00 72 23 108/76 (87) 93 Room Air 06/24/22 01:00 73 06/24/22 00:00 98 Room Air 06/24/22 00:00 37.0 Room Air 06/24/22 00:00 70 22 101/52 (68) 94 Room Air 06/23/22 23:00 73 20 100/62 (75) 92 Room Air 06/23/22 22:00 79 23 97/54 (68) 91 Room Air 06/23/22 21:30 98 Room Air 06/23/22 21:00 80 19 104/61 (75) 94 Room Air 06/23/22 20:00 80 20 99/48 (65) 94 Room Air 06/23/22 20:00 37.2 06/23/22 19:30 37.1 Room Air 06/23/22 19:00 82 21 95/52 (66) 94 Room Air 06/23/22 19:00 98 Room Air 06/23/22 19:00 81 06/23/22 18:45 88 17 126/84 (98) 91 Room Air 06/23/22 18:45 88 06/23/22 17:04 36.1 88 16 100/51 95 Room Air 06/23/22 14:29 36.1 83 16 97/60 95 Room Air 06/23/22 12:37 36.1 75 14 97/49 (65) 96 Room Air I & O 06/24/22 07:00 Intake Total 3200 ml Output Total 1250 ml Balance 1950 ml Height & Weight Height: 5'5.00" Weight: 183lbs. oz. 83.112721mq; 36.05 BMI Method: General Appearance: No Apparent Distress, WD/WN HEENT: PERRL/EOMI, Moist Mucous Membranes Neck: Normal Inspection, Supple Respiratory: Chest Non Tender, Lungs Clear, Normal Breath Sounds, No Accessory Muscle Use, No Respiratory Distress Cardiovascular: Regular Rate, Rhythm, No Edema, No Murmur, Normal Peripheral Pulses Capillary Refill: Less Than 3 Seconds Peripheral Pulses: 3+ Dorsalis Pedis (R), 3+ Left Dors-Pedis (L), 3+ Radial Pulses (R), 3+ Radial Pulses (L) Gastrointestinal: soft, tenderness (RLQ and LLQ) Extremity: Normal Inspection, No Calf Tenderness, No Pedal Edema Neurologic/Psychiatric: Alert, Oriented x3, Normal Mood/Affect Skin: Normal Color, Warm/Dry Lymphatic: No Adenopathy Results Lab Laboratory Tests 06/23/22 12:40 06/24/22 04:45 Assessment/Plan Assessment/Plan 1 DEONNA JOSEPH MD Jun 24, 2022 10:22
[2022-06-24] MEDS: HEParin DRIP 25000 UNIT/500ML 500 ML IV SCH ×2 (10:30→23:28)
--- NOTE | 2022-06-24 11:17 | Tele-ICU Progress Note ---
Subjective Date Seen by a Provider: Jun 24, 2022 Time Seen by a Provider: 11:17 Subjective/Events-last exam (Tele-ICU Physician , Progress Note ) Service provided via interactive audio and video telecommunications E-CARE system to a patient admitted to ICU bed in [facility]. 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 Discussed with RN to reach out if any questions or concerns A total of 25 minutes of critical care time was devoted to this patient today, required to treat and/or prevent further deterioration of critical care condition ( as above ) . I am remotely monitoring this patient from another state. I am unable to do the bedside exam, and history/physical and pertinent information is taken from other notes in the computer and bedside staff. I cannot take responsibility for the accuracy of this information. Sepsis Event Evaluation Height, Weight, BMI Height: 5'5.00" Weight: 183lbs. oz. 83.478645nq; 36.05 BMI Method: Focused Exam Lactate Level 06/23/22 12:40: Lactic Acid Level 3.61*H 06/23/22 14:40: Lactic Acid Level 2.40*H 06/23/22 21:10: Lactic Acid Level 1.37 Exam Exam Patient acknowledged, consented, and participated in this virtual visit which was conducted using real time audio/video Vital Signs Date Time Temp Pulse Resp B/P (MAP) Pulse Ox O2 Delivery O2 Flow Rate FiO2 06/24/22 10:00 70 21 121/79 (93) 93 Room Air 06/24/22 09:00 65 19 111/68 (82) 95 Room Air 06/24/22 08:00 65 18 105/63 (77) 93 Room Air 06/24/22 08:00 Room Air 06/24/22 07:25 36.7 06/24/22 07:00 64 06/24/22 07:00 64 17 100/60 (73) 94 Room Air 06/24/22 06:00 73 11 98/58 (71) 93 Room Air 06/24/22 05:00 68 13 99/61 (74) 93 Room Air 06/24/22 04:00 69 22 112/64 (80) 92 Room Air 06/24/22 03:02 98 Room Air 06/24/22 03:01 37.0 Room Air 06/24/22 03:00 89 20 89/43 (58) 93 Room Air 06/24/22 02:00 73 20 102/56 (71) 92 Room Air 06/24/22 01:00 72 23 108/76 (87) 93 Room Air 06/24/22 01:00 73 06/24/22 00:00 98 Room Air 06/24/22 00:00 37.0 Room Air 06/24/22 00:00 70 22 101/52 (68) 94 Room Air 06/23/22 23:00 73 20 100/62 (75) 92 Room Air 06/23/22 22:00 79 23 97/54 (68) 91 Room Air 06/23/22 21:30 98 Room Air 06/23/22 21:00 80 19 104/61 (75) 94 Room Air 06/23/22 20:00 80 20 99/48 (65) 94 Room Air 06/23/22 20:00 37.2 06/23/22 19:30 37.1 Room Air 06/23/22 19:00 82 21 95/52 (66) 94 Room Air 06/23/22 19:00 98 Room Air 06/23/22 19:00 81 06/23/22 18:45 88 17 126/84 (98) 91 Room Air 06/23/22 18:45 88 06/23/22 17:04 36.1 88 16 100/51 95 Room Air 06/23/22 14:29 36.1 83 16 97/60 95 Room Air 06/23/22 12:37 36.1 75 14 97/49 (65) 96 Room Air I & O 06/24/22 07:00 Intake Total 3200 ml Output Total 1250 ml Balance 1950 ml Height & Weight Height: 5'5.00" Weight: 183lbs. oz. 83.182201cf; 36.05 BMI Method: General Appearance: No Apparent Distress, WD/WN HEENT: PERRL/EOMI, Moist Mucous Membranes Neck: Normal Inspection, Supple Respiratory: Chest Non Tender, Lungs Clear, Normal Breath Sounds, No Accessory Muscle Use, No Respiratory Distress Cardiovascular: Regular Rate, Rhythm, No Edema, No Murmur, Normal Peripheral Pulses Capillary Refill: Less Than 3 Seconds Peripheral Pulses: 3+ Dorsalis Pedis (R), 3+ Left Dors-Pedis (L), 3+ Radial Pulses (R), 3+ Radial Pulses (L) Gastrointestinal: soft, tenderness (RLQ and LLQ) Extremity: Normal Inspection, No Calf Tenderness, No Pedal Edema Neurologic/Psychiatric: Alert, Oriented x3, Normal Mood/Affect Skin: Normal Color, Warm/Dry Lymphatic: No Adenopathy Results Lab Laboratory Tests 06/23/22 12:40 06/24/22 04:45 Assessment/Plan Assessment/Plan 1 DEONNA JOSEPH MD Jun 24, 2022 11:17
[2022-06-24 12:35] LABS: BASOPHILS % (AUTO) 0 % (0-10); EOSINOPHILS # (AUTO) 0.2 10^3/uL (0.0-0.3); EOSINOPHILS % (AUTO) 2 % (0-10); HEMATOCRIT 31 % (40-54); LYMPHOCYTES # (AUTO) 0.8 10^3/uL (1.0-4.0); LYMPHOCYTES % (AUTO) 7 % (12-44); MEAN CORPUSCULAR HEMOGLOBIN 30 pg (25-34); MEAN CORPUSCULAR HGB CONC 35 g/dL (32-36); MEAN CORPUSCULAR VOLUME 83 fL (80-99); MEAN PLATELET VOLUME 11.7 fL (9.0-12.2); MONOCYTES # (AUTO) 0.6 10^3/uL (0.0-1.0); MONOCYTES % (AUTO) 5 % (0-12); NEUTROPHILS # (AUTO) 9.4 10^3/uL (1.8-7.8); NEUTROPHILS % (AUTO) 84 % (42-75); PLATELET COUNT 86 10^3/uL (130-400); WHITE BLOOD COUNT 11.2 10^3/uL (4.3-11.0)
[2022-06-24 12:51] LABS: ATYPICAL LYMPHOCYTES 1 %; BAND NEUTROPHILS 2 %; LYMPHOCYTES % (MANUAL) 5 %; MONOCYTES % (MANUAL) 5 %; NEUTROPHILS % (MANUAL) 86 %; REACTIVE LYMPHOCYTES 1 %
[2022-06-24 12:52] LABS: RBC MORPH NORMAL; TOXIC GRANULATION/VACUOLAZATIO 1+
[2022-06-24 12:59] LABS: CALCIUM 7.7 MG/DL (8.5-10.1)
[2022-06-24 13:03] LABS: CREATININE SERUM 1.12 MG/DL (0.60-1.30)
[2022-06-24] MEDS ORDERED: POTASSIUM CL 10MEQ/50ML IVPB 50 ML IV ONE (13:45)
--- NOTE | 2022-06-24 16:51 | History & Physical ---
HPI History of Present Illness: 67 yo M that presented to ER with worsening abdominal pain, diarrhea and N/V. Patient states that he has never had anything like this previously. States that it has started several days ago but got alot worse the day of admission. Denies any sick contacts. Denies any blood in stool. Source: patient Exam Limitations: no limitations Date seen by provider: Jun 24, 2022 Time Seen by Provider: 09:15 Attending Physician Tete Childs Aprn PCP Admitting Physician: Luis Fernandez MD Attending Physician: Luis Fernandez MD Consult Date of Admission Jun 23, 2022 at 18:35 Home Medications Home Medications Reviewed patient Home Medication Reconciliation performed by pharmacy medication reconciliations optoelectronic technician and/or nursing. Patients Allergies have been reviewed. Allergies Coded Allergies: clonidine (Unverified Allergy, Unknown, 12/18/14) lisinopril (Unverified Allergy, Unknown, 12/18/14) metoprolol (Unverified Allergy, Unknown, 12/18/14) [id number] Hx Patient Social History Smoking Status: Former Smoker Alcohol Use?: Yes Have you traveled recently?: No Immunizations Up To Date Influenza Vaccine Up-to-Date: No; Not Current First/Initial COVID19 Vaccinat: YES Past Medical History HTN HLD Family Medical History Significant Family History: No Pertinent Family Hx Review of Systems ([facility]) Constitutional: chills, malaise, weakness EENTM: no symptoms reported; No mouth pain, No nose congestion Respiratory: No cough, No dyspnea on exertion Cardiovascular: no symptoms reported; No chest pain, No palpitations Gastrointestinal: abdominal pain, diarrhea, nausea, vomiting Genitourinary: no symptoms reported; No dysuria, No frequency, No hematuria Musculoskeletal: no symptoms reported Skin: no symptoms reported Psychiatric/Neurological: No Symptoms Reported Reviewed Test Results Reviewed Test Results Lab Laboratory Tests Test 06/23/22 19:58 06/23/22 21:10 06/24/22 01:45 06/24/22 04:45 Range/Units Activated Partial Thromboplast Time 50 H 46 H 24-35 SEC Lactic Acid Level 1.37 0.50-2.00 MMOL/L White Blood Count 11.3 H 4.3-11.0 10^3/uL Red Blood Count 3.76 L 4.30-5.52 10^6/uL Hemoglobin 10.9 L 13.3-17.7 g/dL Hematocrit 32 L 40-54 % Mean Corpuscular Volume 84 80-99 fL Mean Corpuscular Hemoglobin 29 25-34 pg Mean Corpuscular Hemoglobin Concent 35 32-36 g/dL Red Cell Distribution Width 14.7 H 10.0-14.5 % Platelet Count 86 L 130-400 10^3/uL Mean Platelet Volume 12.2 9.0-12.2 fL Immature Granulocyte % (Auto) 1 % Neutrophils (%) (Auto) 82 H 42-75 % Lymphocytes (%) (Auto) 8 L 12-44 % Monocytes (%) (Auto) 7 0-12 % Eosinophils (%) (Auto) 0 0-10 % Basophils (%) (Auto) 0 0-10 % Neutrophils # (Auto) 9.3 H 1.8-7.8 10^3/uL Lymphocytes # (Auto) 0.9 L 1.0-4.0 10^3/uL Monocytes # (Auto) 0.8 0.0-1.0 10^3/uL Eosinophils # (Auto) 0.1 0.0-0.3 10^3/uL Basophils # (Auto) 0.1 0.0-0.1 10^3/uL Immature Granulocyte # (Auto) 0.2 H 0.0-0.1 10^3/uL Sodium Level 134 L 135-145 MMOL/L Potassium Level 3.0 L 3.6-5.0 MMOL/L Chloride Level 101 98-107 MMOL/L Carbon Dioxide Level 22 21-32 MMOL/L Anion Gap 11 5-14 MMOL/L Blood Urea Nitrogen 27 H 7-18 MG/DL Creatinine 1.33 H 0.60-1.30 MG/DL Estimat Glomerular Filtration Rate 59 BUN/Creatinine Ratio 20 Glucose Level 99 70-105 MG/DL Calcium Level 7.7 L 8.5-10.1 MG/DL Corrected Calcium 8.7 8.5-10.1 MG/DL Phosphorus Level 1.8 L 2.3-4.7 MG/DL Magnesium Level 2.2 1.6-2.4 MG/DL Total Bilirubin 2.1 H 0.1-1.0 MG/DL Aspartate Amino Transf (AST/SGOT) 72 H 5-34 U/L Alanine Aminotransferase (ALT/SGPT) 44 0-55 U/L Alkaline Phosphatase 90 40-136 U/L Total Protein 5.5 L 6.4-8.2 GM/DL Albumin 2.7 L 3.2-4.5 GM/DL Test 06/24/22 08:57 06/24/22 12:15 06/24/22 16:10 Range/Units Activated Partial Thromboplast Time 51 H 24-35 SEC White Blood Count 11.2 H 4.3-11.0 10^3/uL Red Blood Count 3.73 L 4.30-5.52 10^6/uL Hemoglobin 11.0 L 13.3-17.7 g/dL Hematocrit 31 L 40-54 % Mean Corpuscular Volume 83 80-99 fL Mean Corpuscular Hemoglobin 30 25-34 pg Mean Corpuscular Hemoglobin Concent 35 32-36 g/dL Red Cell Distribution Width 14.6 H 10.0-14.5 % Platelet Count 86 L 130-400 10^3/uL Mean Platelet Volume 11.7 9.0-12.2 fL Immature Granulocyte % (Auto) 1 % Neutrophils (%) (Auto) 84 H 42-75 % Lymphocytes (%) (Auto) 7 L 12-44 % Monocytes (%) (Auto) 5 0-12 % Eosinophils (%) (Auto) 2 0-10 % Basophils (%) (Auto) 0 0-10 % Neutrophils # (Auto) 9.4 H 1.8-7.8 10^3/uL Lymphocytes # (Auto) 0.8 L 1.0-4.0 10^3/uL Monocytes # (Auto) 0.6 0.0-1.0 10^3/uL Eosinophils # (Auto) 0.2 0.0-0.3 10^3/uL Basophils # (Auto) 0.0 0.0-0.1 10^3/uL Immature Granulocyte # (Auto) 0.1 0.0-0.1 10^3/uL Neutrophils % (Manual) 86 % Lymphocytes % (Manual) 5 % Monocytes % (Manual) 5 % Band Neutrophils 2 % Atypical Lymphocytes 1 % Reactive Lymphocytes 1 % Toxic Granulation 1+ Percent Immature Platelet Fraction 6.9 0.0-7.6 % Blood Morphology Comment NORMAL Sodium Level 136 135-145 MMOL/L Potassium Level 3.0 L 3.6-5.0 MMOL/L Chloride Level 103 98-107 MMOL/L Carbon Dioxide Level 25 21-32 MMOL/L Anion Gap 8 5-14 MMOL/L Blood Urea Nitrogen 23 H 7-18 MG/DL Creatinine 1.12 0.60-1.30 MG/DL Estimat Glomerular Filtration Rate 72 BUN/Creatinine Ratio 21 Glucose Level 115 H 70-105 MG/DL Calcium Level 7.7 L 8.5-10.1 MG/DL Physical Exam-([facility]) Physical Exam Vital Signs VS - Last 72 Hours, by Label 06/23/22 06/23/22 06/23/22 06/23/22 12:37 14:29 17:04 18:45 Temp 36.1 36.1 36.1 Pulse 75 83 88 88 Resp 14 16 16 B/P (MAP) 97/49 (65) 97/60 100/51 Pulse Ox 96 95 95 O2 Delivery Room Air Room Air Room Air 06/23/22 06/23/22 06/23/22 06/23/22 18:45 19:00 19:00 19:00 Pulse 88 81 82 Resp 17 21 B/P (MAP) 126/84 (98) 95/52 (66) Pulse Ox 91 98 94 O2 Delivery Room Air Room Air Room Air 06/23/22 06/23/22 06/23/22 06/23/22 19:30 20:00 20:00 21:00 Temp 37.1 37.2 Pulse 80 80 Resp 20 19 B/P (MAP) 99/48 (65) 104/61 (75) Pulse Ox 94 94 O2 Delivery Room Air Room Air Room Air 06/23/22 06/23/22 06/23/22 06/24/22 21:30 22:00 23:00 00:00 Pulse 79 73 70 Resp 23 20 22 B/P (MAP) 97/54 (68) 100/62 (75) 101/52 (68) Pulse Ox 98 91 92 94 O2 Delivery Room Air Room Air Room Air Room Air 06/24/22 06/24/22 06/24/22 06/24/22 00:00 00:00 01:00 01:00 Temp 37.0 Pulse 73 72 Resp 23 B/P (MAP) 108/76 (87) Pulse Ox 98 93 O2 Delivery Room Air Room Air Room Air 06/24/22 06/24/22 06/24/22 06/24/22 02:00 03:00 03:01 03:02 Temp 37.0 Pulse 73 89 Resp 20 20 B/P (MAP) 102/56 (71) 89/43 (58) Pulse Ox 92 93 98 O2 Delivery Room Air Room Air Room Air Room Air 06/24/22 06/24/22 06/24/22 06/24/22 04:00 05:00 06:00 07:00 Pulse 69 68 73 64 Resp 22 13 11 17 B/P (MAP) 112/64 (80) 99/61 (74) 98/58 (71) 100/60 (73) Pulse Ox 92 93 93 94 O2 Delivery Room Air Room Air Room Air Room Air 06/24/22 06/24/22 06/24/22 06/24/22 07:00 07:25 08:00 08:00 Temp 36.7 Pulse 64 65 Resp 18 B/P (MAP) 105/63 (77) Pulse Ox 93 O2 Delivery Room Air Room Air 06/24/22 06/24/22 06/24/22 06/24/22 09:00 10:00 11:00 12:00 Pulse 65 70 75 Resp 19 21 26 B/P (MAP) 111/68 (82) 121/79 (93) 156/102 (120) Pulse Ox 95 93 97 O2 Delivery Room Air Room Air Room Air Room Air 06/24/22 06/24/22 06/24/22 06/24/22 12:00 12:30 13:00 13:00 Temp 36.6 Pulse 80 76 74 Resp 25 12 B/P (MAP) 113/70 (84) 111/61 (78) Pulse Ox 97 98 O2 Delivery Room Air Room Air 06/24/22 06/24/22 06/24/22 06/24/22 14:00 15:00 16:00 16:06 Pulse 67 68 65 Resp 21 26 21 B/P (MAP) 118/71 (87) 119/72 (88) 115/73 (87) Pulse Ox 100 99 99 O2 Delivery Room Air Room Air Room Air Room Air Capillary Refill : Less Than 3 Seconds General Appearance: WD/WN, mild distress HEENT: PERRL/EOMI Neck: non-tender, full range of motion, supple Respiratory: chest non-tender, lungs clear, normal breath sounds, no respiratory distress, no accessory muscle use Cardiovascular: normal peripheral pulses, regular rate, rhythm, no edema, no murmur Gastrointestinal: soft; No guarding, No rebound; tenderness Back: no CVA tenderness, no vertebral tenderness Extremities: normal range of motion, no pedal edema, no calf tenderness, normal capillary refill Neurologic/Psychiatric: vehicle monitor technician II-XII nml as tested, alert, normal mood/affect, oriented x 3 Skin: normal color, warm/dry Lymphatic: no adenopathy Assessment/Plan Assessment/Plan Admission Status: Inpatient Order (span 2 midnights) Reason for Inpatient Admission: high risk for decompensation, requiring heparin drip and ICU care (1) Sepsis Assessment & Plan: - Blood cultures x3, Gram neg, pending, continue zosyn, HDS, continue to monitor Qualifiers: Qualified Codes: A41.51 - Sepsis due to Escherichia coli [e. coli]; R65.20 - Severe sepsis without septic shock; N17.9 - Acute kidney failure, unspecified (2) Bacteremia Status: Acute (3) Mesenteric vein thrombosis Status: Acute Assessment & Plan: - Heparin drip, General surgery consulted, appreciate recommendations (4) Acute renal failure Status: Acute Assessment & Plan: - Cr improved ON with IVFs, continue to monitor Qualifiers: Qualified Codes: N17.9 - Acute kidney failure, unspecified (5) Lactic acid acidosis Status: Acute (6) Normocytic anemia Status: Acute Assessment & Plan: - No signs of acute bleeding (7) HTN (hypertension) Status: Chronic Assessment & Plan: - Holding home BPs meds due to normotension (8) Hypokalemia Status: Acute Assessment & Plan: - Replaced and repeat levels LUIS FERNANDEZ MD Jun 24, 2022 16:51
[2022-06-25 02:38] LABS: POTASSIUM 3.6 MMOL/L (3.6-5.0)
[2022-06-25 02:45] LABS: MAGNESIUM 2.3 MG/DL (1.6-2.4)
[2022-06-25] MEDS: MAGNESIUM 1 GM/100 ML IVPB 100 ML IV SCH (05:31)
[2022-06-25] MEDS: POTASSIUM CL 10MEQ/50ML IVPB 50 ML IV SCH ×3 (05:31→08:56)
[2022-06-25] MEDS: KCL 20 MEQ TAB (K-DUR) PO SCH (05:32)
[2022-06-25] MEDS: PIPERACILLIN SODIUM/TAZOBACTAM 4.5 GM in NS (IVPB) 100 ML IV SCH ×3 (05:59→20:25)
[2022-06-25] MEDS: NS IV 1000 ML 1,000 ML IV SCH ×3 (06:02→17:54)
[2022-06-25] MEDS: HEParin 1000 UNIT/ML (10ML VIAL) FOR BOLUS IV SCH ×2 (06:15→10:14)
[2022-06-25] MEDS: fentaNYL INJ 100 MCG/2 ML AMP IVP PRN (06:23)
--- NOTE | 2022-06-25 07:40 | Progress Note - Surgery ---
BIPIN URBINA 06/25/22 0740: Subjective Date Seen by a Provider: Jun 25, 2022 Time Seen by a Provider: 07:10 Subjective/Events-last exam 67 M on day 3 of admission for inf mesenteric vein thrombosis and lactic acidosis reports improvement of diffuse lower abdominal pain that waxes and wanes rating a 3-5/10. Pt had a loose BM last night with no complaints. Stills has mild discomfort upon voiding. Denies seeing any red blood in stool or melena. Pt had a bout of indigestion over the night but reports this is nothing new. Denies any chest pain, sob, fever, chills, n/v, or light headedness. Blood cultures resulted in e. coli. Review of Systems General: No Chills, No Night Sweats HEENT: No Head Aches, No Visual Changes Pulmonary: No Dyspnea, No Cough Cardiovascular: No: Chest Pain, Palpitations Gastrointestinal: Abdominal Pain (RLQ and LLQ); No: Nausea, Vomiting Genitourinary: Dysuria; No Frequency Musculoskeletal: neck pain (chronic ), back pain (chronic); No: leg pain Neurological: No: Change in speech, Confusion Focused Exam Lactate Level 06/23/22 12:40: Lactic Acid Level 3.61*H 06/23/22 14:40: Lactic Acid Level 2.40*H 06/23/22 21:10: Lactic Acid Level 1.37 Objective Exam Vital Signs Date Time Temp Pulse Resp B/P (MAP) Pulse Ox O2 Delivery O2 Flow Rate FiO2 06/25/22 06:00 67 17 125/74 (91) 98 Room Air 06/25/22 05:00 63 18 125/71 (89) 100 Room Air 06/25/22 04:00 66 28 127/70 (89) 98 Room Air 06/25/22 04:00 37.0 06/25/22 04:00 Room Air 06/25/22 03:00 64 22 114/60 (78) 99 Room Air 06/25/22 02:00 68 22 117/79 (92) 98 Room Air 06/25/22 01:00 63 23 115/62 (79) 97 Room Air 06/25/22 01:00 62 06/25/22 00:01 37.1 06/25/22 00:01 Room Air 06/25/22 00:00 67 19 126/73 (90) 98 Room Air 06/24/22 23:00 62 21 110/68 (82) 99 Room Air 06/24/22 22:00 63 18 106/74 (85) 98 Room Air 06/24/22 21:00 66 14 116/74 (88) 97 Room Air 06/24/22 20:01 37.0 06/24/22 20:00 67 9 118/77 (91) 100 Room Air 06/24/22 20:00 Room Air 06/24/22 19:00 60 06/24/22 19:00 64 17 109/73 (85) 100 Room Air 06/24/22 18:00 63 10 107/67 (80) 100 Room Air 06/24/22 17:00 64 20 122/109 (113) 99 Room Air 06/24/22 16:20 36.3 06/24/22 16:06 Room Air 06/24/22 16:00 65 21 115/73 (87) 99 Room Air 06/24/22 15:00 68 26 119/72 (88) 99 Room Air 06/24/22 14:00 67 21 118/71 (87) 100 Room Air 06/24/22 13:00 74 12 111/61 (78) 98 Room Air 06/24/22 13:00 76 06/24/22 12:30 36.6 06/24/22 12:00 80 25 113/70 (84) 97 Room Air 06/24/22 12:00 Room Air 06/24/22 11:00 75 26 156/102 (120) 97 Room Air 06/24/22 10:00 70 21 121/79 (93) 93 Room Air 06/24/22 09:00 65 19 111/68 (82) 95 Room Air 06/24/22 08:00 65 18 105/63 (77) 93 Room Air 06/24/22 08:00 Room Air I & O 06/25/22 07:00 Intake Total 1700 ml Output Total 1850 ml Balance -150 ml Capillary Refill : Less Than 3 Seconds General Appearance: No Apparent Distress, WD/WN HEENT: PERRL/EOMI, Moist Mucous Membranes Neck: Normal Inspection, Supple Respiratory: Chest Non Tender, Lungs Clear, Normal Breath Sounds, No Accessory Muscle Use, No Respiratory Distress Cardiovascular: Regular Rate, Rhythm, No Edema, No Murmur, Normal Peripheral Pulses Peripheral Pulses: 3+ Dorsalis Pedis (R), 3+ Left Dors-Pedis (L), 3+ Radial Pulses (R), 3+ Radial Pulses (L) Gastrointestinal: soft; No guarding, No rebound; tenderness Extremity: Normal Inspection, No Calf Tenderness, No Pedal Edema Neurologic/Psychiatric: Alert, Oriented x3, Normal Mood/Affect Skin: Normal Color, Warm/Dry Lymphatic: No Adenopathy Results Lab Laboratory Tests 06/24/22 08:57: Activated Partial Thromboplast Time 51H 06/24/22 12:15: White Blood Count 11.2H, Red Blood Count 3.73L, Hemoglobin 11.0L, Hematocrit 31L , Mean Corpuscular Volume 83, Mean Corpuscular Hemoglobin 30, Mean Corpuscular Hemoglobin Concent 35, Red Cell Distribution Width 14.6H, Platelet Count 86L, Mean Platelet Volume 11.7, Immature Granulocyte % (Auto) 1, Neutrophils (%) (Auto) 84H, Lymphocytes (%) (Auto) 7L, Monocytes (%) (Auto) 5, Eosinophils (%) (Auto) 2, Basophils (%) (Auto) 0, Neutrophils # (Auto) 9.4H, Lymphocytes # (Auto) 0.8L, Monocytes # (Auto) 0.6, Eosinophils # (Auto) 0.2, Basophils # (Auto) 0.0, Immature Granulocyte # (Auto) 0.1, Neutrophils % (Manual) 86, Lymphocytes % (Manual) 5, Monocytes % (Manual) 5, Band Neutrophils 2, Atypical Lymphocytes 1, Reactive Lymphocytes 1, Toxic Granulation 1+, Percent Immature Platelet Fraction 6.9, Blood Morphology Comment NORMAL, Sodium Level 136, Potassium Level 3.0L, Chloride Level 103, Carbon Dioxide Level 25, Anion Gap 8, Blood Urea Nitrogen 23H, Creatinine 1.12, Estimat Glomerular Filtration Rate 72, BUN/Creatinine Ratio 21, Glucose Level 115H, Calcium Level 7.7L 06/24/22 16:10: Activated Partial Thromboplast Time 52H 06/25/22 02:22: Activated Partial Thromboplast Time 48H, Potassium Level 3.6, Magnesium Level 2.3 06/25/22 05:05: Platelet Count 86L, Phosphorus Level 1.6L Microbiology 06/23/22 Blood Culture - Preliminary, Resulted Gram Negative Bacillus 1 06/23/22 MRSA Screen - Final, Complete Assessment/Plan Assessment/Plan Assessment/Plan inf. mesenteric venousphlebitis RLQ and LLQ abdominal pain N/V diarrhea Mural thickening of sigmoid colon sepsis, blood cultures resulted in e. coli, susceptibility pending indigestion Continue IV fluids continue heparin bolus continue IV Zosyn continue serial CBC CMP continue NPO Zofran PRN pain medications PRN Discussed patient ct scan findings and need for anticoagulation. Symptoms could worsen and bowel has potential of being ischemic needing surgical intervention currently I do not feel he is ischemic and hopeful anticoagulation will be beneficial. Patient understands plan. advance to clear liquid diet serial abdominal exams and coag studies starts Pepcid PRN obtain UA and Urine cultures DINAH PINO DO 06/25/22 1744: Subjective Subjective/Events-last exam Patient with loose bowel movement last night. Abdomen is a little bit more gassy he states/distended. Blood cultures demonstrate E. coli bacteremia. Pain controlled and not worsening. Denies nausea vomiting fever sweats chills shortness of breath or chest pain at this time. Objective Exam General Appearance: No Apparent Distress, WD/WN HEENT: PERRL/EOMI, Moist Mucous Membranes Neck: Normal Inspection, Supple Respiratory: Chest Non Tender, No Accessory Muscle Use, No Respiratory Distress Cardiovascular: Regular Rate, Rhythm, No JVD Gastrointestinal: soft, distended (minimal); No guarding, No rebound; tenderness (lower abdomen but seems less than previous days) Extremity: Normal Inspection, No Calf Tenderness Neurologic/Psychiatric: Alert, Oriented x3 Skin: Normal Color, Warm/Dry Lymphatic: No Adenopathy Assessment/Plan Assessment/Plan Assessment/Plan inf. mesenteric venousphlebitis RLQ and LLQ abdominal pain N/V diarrhea Mural thickening of sigmoid colon sepsis, blood cultures resulted in e. coli, susceptibility pending Continue abx exam slightly better than yesterday continue anticoagulation would continue 6 months clear liquids repeat labs in am Supervisory-Addendum Brief Verification & Attestation Participated in pt care: history, MDM, physical Personally performed: exam, history, MDM, supervision of care Care discussed with: Medical Student Procedures: n/a Results interpretation: Verified all documentation Verification and Attestation of Medical Student E/M Service A medical student performed and documented this service in my presence. I reviewed and verified all information documented by the medical student and made modifications to such information, when appropriate. I personally performed the physical exam and medical decision making. Dinah Pino, Jun 25, 2022,17:43 BIPIN URBINA Jun 25, 2022 07:40 DINAH PINO DO Jun 25, 2022 17:44
[2022-06-25 08:15] LABS: PLATELET COUNT 89 10^3/uL (130-400); WHITE BLOOD COUNT 12.3 10^3/uL (4.3-11.0)
[2022-06-25 08:17] LABS: BASOPHILS # (AUTO) 0.1 10^3/uL (0.0-0.1); BASOPHILS % (AUTO) 0 % (0-10); EOSINOPHILS # (AUTO) 0.2 10^3/uL (0.0-0.3); EOSINOPHILS % (AUTO) 1 % (0-10); HEMATOCRIT 30 % (40-54); HEMOGLOBIN 10.4 g/dL (13.3-17.7); LYMPHOCYTES # (AUTO) 1.6 10^3/uL (1.0-4.0); LYMPHOCYTES % (AUTO) 13 % (12-44); MEAN CORPUSCULAR HEMOGLOBIN 30 pg (25-34); MEAN CORPUSCULAR HGB CONC 34 g/dL (32-36); MEAN CORPUSCULAR VOLUME 86 fL (80-99); MEAN PLATELET VOLUME 12.5 fL (9.0-12.2); MONOCYTES % (AUTO) 8 % (0-12); NEUTROPHILS # (AUTO) 9.4 10^3/uL (1.8-7.8); NEUTROPHILS % (AUTO) 76 % (42-75)
[2022-06-25 08:18] LABS: CALCIUM 7.8 MG/DL (8.5-10.1); CREATININE SERUM 0.9 MG/DL (0.60-1.30); POTASSIUM 3.7 MMOL/L (3.6-5.0)
[2022-06-25] MEDS ORDERED: ONDANSETRON 4 MG (ZOFRAN) ORAL DISSOLVE TAB PO PRN (11:30)
--- NOTE | 2022-06-25 12:12 | Tele-ICU Progress Note ---
Subjective Date Seen by a Provider: Jun 25, 2022 Time Seen by a Provider: 12:12 Subjective/Events-last exam (Tele-ICU Physician , Progress Note ) Service provided via interactive audio and video telecommunications E-CARE system to a patient admitted to ICU bed in [facility]. Available chart/ vitals / labs / Images reviewed Video assessment done using teleICU camera, rest of exam as per RN Discussed with RN Events overnight : Afebrile hemodynamically stable Respiratory - ra I/O = Drips: ns 125 Pressors- no Consultants: Hospital course: Patient is seen today due to persistent and new A/P inf. 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 Discussed with RN to reach out if any questions or concerns A total of 25 minutes of critical care time was devoted to this patient today, required to treat and/or prevent further deterioration of critical care condition ( as above ) . I am remotely monitoring this patient from another state. I am unable to do the bedside exam, and history/physical and pertinent information is taken from other notes in the computer and bedside staff. Sepsis Event Evaluation Height, Weight, BMI Height: 5'5.00" Weight: 183lbs. oz. 83.218288yp; 36.32 BMI Method: Focused Exam Lactate Level 06/23/22 12:40: Lactic Acid Level 3.61*H 06/23/22 14:40: Lactic Acid Level 2.40*H 06/23/22 21:10: Lactic Acid Level 1.37 Exam Exam Patient acknowledged, consented, and participated in this virtual visit which was conducted using real time audio/video Vital Signs Date Time Temp Pulse Resp B/P (MAP) Pulse Ox O2 Delivery O2 Flow Rate FiO2 06/25/22 10:00 79 31 127/105 (112) 95 Room Air 06/25/22 09:00 58 14 130/81 (97) 99 Room Air 06/25/22 08:00 Room Air 06/25/22 08:00 59 16 127/70 (89) 99 Room Air 06/25/22 07:35 36.4 06/25/22 07:00 60 06/25/22 07:00 67 23 125/79 (94) 98 Room Air 06/25/22 06:00 67 17 125/74 (91) 98 Room Air 06/25/22 05:00 63 18 125/71 (89) 100 Room Air 06/25/22 04:00 66 28 127/70 (89) 98 Room Air 06/25/22 04:00 37.0 06/25/22 04:00 Room Air 06/25/22 03:00 64 22 114/60 (78) 99 Room Air 06/25/22 02:00 68 22 117/79 (92) 98 Room Air 06/25/22 01:00 63 23 115/62 (79) 97 Room Air 06/25/22 01:00 62 06/25/22 00:01 37.1 06/25/22 00:01 Room Air 06/25/22 00:00 67 19 126/73 (90) 98 Room Air 06/24/22 23:00 62 21 110/68 (82) 99 Room Air 06/24/22 22:00 63 18 106/74 (85) 98 Room Air 06/24/22 21:00 66 14 116/74 (88) 97 Room Air 06/24/22 20:01 37.0 06/24/22 20:00 67 9 118/77 (91) 100 Room Air 06/24/22 20:00 Room Air 06/24/22 19:00 60 06/24/22 19:00 64 17 109/73 (85) 100 Room Air 06/24/22 18:00 63 10 107/67 (80) 100 Room Air 06/24/22 17:00 64 20 122/109 (113) 99 Room Air 06/24/22 16:20 36.3 06/24/22 16:06 Room Air 06/24/22 16:00 65 21 115/73 (87) 99 Room Air 06/24/22 15:00 68 26 119/72 (88) 99 Room Air 06/24/22 14:00 67 21 118/71 (87) 100 Room Air 06/24/22 13:00 74 12 111/61 (78) 98 Room Air 06/24/22 13:00 76 06/24/22 12:30 36.6 I & O 06/25/22 07:00 Intake Total 1700 ml Output Total 1850 ml Balance -150 ml Height & Weight Height: 5'5.00" Weight: 183lbs. oz. 83.657444am; 36.32 BMI Method: General Appearance: No Apparent Distress, WD/WN HEENT: PERRL/EOMI, Moist Mucous Membranes Neck: Normal Inspection, Supple Respiratory: Chest Non Tender, Lungs Clear, Normal Breath Sounds, No Accessory Muscle Use, No Respiratory Distress Cardiovascular: Regular Rate, Rhythm, No Edema, No Murmur, Normal Peripheral Pulses Capillary Refill: Less Than 3 Seconds Peripheral Pulses: 3+ Dorsalis Pedis (R), 3+ Left Dors-Pedis (L), 3+ Radial Pulses (R), 3+ Radial Pulses (L) Gastrointestinal: soft, tenderness (RLQ and LLQ) Extremity: Normal Inspection, No Calf Tenderness, No Pedal Edema Neurologic/Psychiatric: Alert, Oriented x3, Normal Mood/Affect Skin: Normal Color, Warm/Dry Lymphatic: No Adenopathy Results Lab Laboratory Tests 06/23/22 12:40 06/24/22 04:45 06/24/22 12:15 06/25/22 02:22 06/25/22 05:05 Assessment/Plan Assessment/Plan 1 DEONNA JOSEPH MD Jun 25, 2022 12:12
[2022-06-25] MEDS: ENOXAPARIN 100 MG/1 ML (LOVENOX) SYR SC SCH ×2 (12:24→22:35)
--- NOTE | 2022-06-25 13:24 | Progress Note - Hospitalist ---
CARON HESS 06/25/22 1324: Subjective HPI/CC On Admission Date Seen by Provider: Jun 25, 2022 Time Seen by Provider: 10:45 Subjective/Events-last exam Pt day 3 of admission for sepsis and inferior mesenteric thrombosis, with surgery consulted. Pt feeling slightly better today. Pain 6-7/10. Reports this morning he developed chest congestion which is new since admission. Reports indigestion and is requesting pepcid. He had a loose bowel movement this am, denies blood. Denies SOB, fever, chills, N/V, dizziness, or any other sx. Blood cultures positive for E.coli, he is on bag 01/10 of Zosyn. Review of Systems General: No Chills, No Night Sweats, No Fatigue HEENT: No Head Aches, No Visual Changes Pulmonary: No Dyspnea; Cough, Pleuritic Chest Pain (chest congestion) Cardiovascular: No: Chest Pain, Palpitations, Orthopnea, Lt Headedness Gastrointestinal: Abdominal Pain, Diarrhea; No: Nausea, Vomiting, Constipation, Melena Genitourinary: No Incontinence, No Retention Musculoskeletal: back pain (chronic); No: leg pain Neurological: No: Weakness, Numbness, Change in speech, Confusion Focused Exam Lactate Level 06/23/22 12:40: Lactic Acid Level 3.61*H 06/23/22 14:40: Lactic Acid Level 2.40*H 06/23/22 21:10: Lactic Acid Level 1.37 Objective Exam Vital Signs Vital Signs Date Time Temp Pulse Resp B/P (MAP) Pulse Ox O2 Delivery O2 Flow Rate FiO2 06/25/22 12:15 Room Air 06/25/22 12:00 58 21 113/76 (88) 100 06/25/22 07:35 36.4 Capillary Refill : Less Than 3 Seconds General Appearance: No Apparent Distress, WD/WN HEENT: PERRL/EOMI, Moist Mucous Membranes Neck: Non Tender, Supple Respiratory: Lungs Clear, No Accessory Muscle Use, No Respiratory Distress; No Respiratory Distress, No Stridor; Wheezing (expiratory, worse on L) Cardiovascular: Regular Rate, Rhythm, No Edema, No Gallop, No Murmur, Normal Peripheral Pulses Gastrointestinal: Normal Bowel Sounds, Distended; No Guarding, No Rebound; Tenderness (LLQ tenderness to palpation ) Back: No CVA Tenderness Extremity: Non Tender, No Calf Tenderness, No Pedal Edema Neurologic/Psychiatric: Alert, Oriented x3, Normal Mood/Affect Skin: Normal Color, Warm/Dry Lymphatic: No Adenopathy Results/Procedures Lab Laboratory Tests 06/25/22 02:22 06/25/22 05:05 Patient resulted labs reviewed. 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 Lactic Acidosis - resolved GERD/Indigestion HTN Plan: IV Zosyn (bag 5/15) DC heparin bolus, start Lovenox Pepcid for heartburn Decrease IVF Surgery consulted, providing recommendations LIUDMILA GOLDEN DO 06/26/22 0525: Subjective Subjective/Events-last exam Patient much improved Lovenox tolerated Pain is pretty well controlled Antibiotics tolerated for bacteremia Review of Systems General: Fatigue, Malaise Objective Exam General Appearance: No Apparent Distress, WD/WN, Chronically ill Respiratory: Lungs Clear, Normal Breath Sounds Cardiovascular: Regular Rate, Rhythm Neurologic/Psychiatric: Alert, Oriented x3 Assessment/Plan Assessment and Plan Assess & Plan/Chief Complaint Supportive care Lovenox ICU Supervisory-Addendum Brief Verification & Attestation Participated in pt care: history, MDM, physical Personally performed: exam, history, MDM, supervision of care Care discussed with: Medical Student Procedures: n/a Results interpretation: Verified all documentation Verification and Attestation of Medical Student E/M Service A medical student performed and documented this service in my presence. I reviewed and verified all information documented by the medical student and made modifications to such information, when appropriate. I personally performed the physical exam and medical decision making. Liudmila Golden Jun 26, 2022,05:24 CARON HESS Jun 25, 2022 13:24 LIUDMILA GOLDEN DO Jun 26, 2022 05:25
[2022-06-26 04:22] LABS: HEMATOCRIT 29 % (40-54); HEMOGLOBIN 10.1 g/dL (13.3-17.7); MEAN CORPUSCULAR HEMOGLOBIN 29 pg (25-34); MEAN CORPUSCULAR HGB CONC 35 g/dL (32-36); MEAN CORPUSCULAR VOLUME 83 fL (80-99); MEAN PLATELET VOLUME 12.2 fL (9.0-12.2); PLATELET COUNT 132 10^3/uL (130-400); WHITE BLOOD COUNT 13.2 10^3/uL (4.3-11.0)
[2022-06-26 04:37] LABS: ALBUMIN 2.6 GM/DL (3.2-4.5); INR 1.2 (0.8-1.4); POTASSIUM 3.4 MMOL/L (3.6-5.0); PROTHROMBIN TIME PATIENT 15.4 SEC (12.2-14.7)
[2022-06-26 04:38] LABS: CALCIUM 7.7 MG/DL (8.5-10.1)
[2022-06-26 04:39] LABS: TOTAL PROTEIN 5.6 GM/DL (6.4-8.2)
[2022-06-26 04:41] LABS: BILIRUBIN,TOTAL 1.6 MG/DL (0.1-1.0)
[2022-06-26 04:42] LABS: PHOSPHORUS 2.1 MG/DL (2.3-4.7)
[2022-06-26 04:43] LABS: CREATININE SERUM 0.91 MG/DL (0.60-1.30)
[2022-06-26] MEDS ORDERED: POTASSIUM CL 10MEQ/50ML IVPB 100 ML IV ONE (05:05)
[2022-06-26] MEDS: fentaNYL INJ 100 MCG/2 ML AMP IVP PRN (05:37)
[2022-06-26] MEDS: POTASSIUM CL 10MEQ/50ML IVPB 50 ML IV SCH ×3 (05:38→08:07)
[2022-06-26] MEDS: PIPERACILLIN SODIUM/TAZOBACTAM 4.5 GM in NS (IVPB) 100 ML IV SCH ×3 (05:38→20:11)
[2022-06-26] MEDS: MAGNESIUM 1 GM/100 ML IVPB 100 ML IV SCH (06:42)
[2022-06-26] MEDS: KCL 20 MEQ TAB (K-DUR) PO SCH (06:42)
[2022-06-26] MEDS: PSYLLIUM POWDER (METAMUCIL) 5.8 GM PACKET PO SCH (08:07)
[2022-06-26] MEDS: NS IV 1000 ML 1,000 ML IV SCH (08:07)
[2022-06-26] MEDS: eZETimibe 10 MG (ZETIA) TABLET PO SCH (08:07)
[2022-06-26] MEDS: LOSARTAN 100 MG (COZAAR) TABLET PO SCH (08:08)
[2022-06-26] MEDS: ASPIRIN E.C. 81 MG (ECOTRIN) TAB PO SCH (08:08)
[2022-06-26] MEDS: FAMOTIDINE 20 MG (PEPCID) TABLET PO SCH (08:08)
[2022-06-26] MEDS: SERTRALINE 100 MG (ZOLOFT) TAB PO SCH (08:08)
--- NOTE | 2022-06-26 08:11 | Progress Note - Hospitalist ---
Subjective HPI/CC On Admission Date Seen by Provider: Jun 26, 2022 Time Seen by Provider: 11:00 Subjective/Events-last exam Much improved status Pain is improved Less congestion No hypoxia Labs stable Lovenox tolerated Review of Systems Pulmonary: Dyspnea Gastrointestinal: Abdominal Pain Focused Exam Lactate Level 06/23/22 21:10: Lactic Acid Level 1.37 Objective Exam Vital Signs Vital Signs Date Time Temp Pulse Resp B/P (MAP) Pulse Ox O2 Delivery O2 Flow Rate FiO2 06/26/22 15:53 97 Room Air 06/26/22 15:00 70 22 161/82 (108) 06/26/22 12:00 35.8 Capillary Refill : Less Than 3 Seconds General Appearance: No Apparent Distress, WD/WN, Chronically ill Respiratory: Lungs Clear, Normal Breath Sounds Cardiovascular: Regular Rate, Rhythm Neurologic/Psychiatric: Alert, Oriented x3, No Motor/Sensory Deficits, Normal Mood/Affect Results/Procedures Lab Laboratory Tests 06/26/22 03:25 Patient resulted labs reviewed. Assessment/Plan Assessment and Plan Assess & Plan/Chief Complaint Supportive care Lovenox ICU RAJINDER PALACIO DO Jun 26, 2022 08:11
[2022-06-26] MEDS ORDERED: METHYLCELLULOSE PO SCH (09:00)
[2022-06-26] MEDS ORDERED: [UNRECOGNIZED DRUG - OTHER] PO SCH (09:00)
--- NOTE | 2022-06-26 09:57 | Tele-ICU Progress Note ---
Subjective Date Seen by a Provider: Jun 26, 2022 Time Seen by a Provider: 09:57 Subjective/Events-last exam (Tele-ICU Physician , Progress Note ) Service provided via interactive audio and video telecommunications E-CARE system to a patient admitted to ICU bed in [facility]. Available chart/ vitals / labs / Images reviewed Video assessment done using teleICU camera, rest of exam as per RN Discussed with RN Events overnight : Afebrile hemodynamically stable Respiratory - ra I/O = Drips: ns 75 Pressors- no Consultants: sx Hospital course: Patient is seen today due to persistent and new A/P inf. 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 Discussed with RN to reach out if any questions or concerns A total of 25 minutes of critical care time was devoted to this patient today, required to treat and/or prevent further deterioration of critical care conditio n ( as above ) . I am remotely monitoring this patient from another state. I am unable to do the bedside exam, and history/physical and pertinent information is taken from other notes in the computer and bedside staff. Sepsis Event Evaluation Height, Weight, BMI Height: 5'5.00" Weight: 183lbs. oz. 83.597017nu; 38.08 BMI Method: Focused Exam Lactate Level 06/23/22 12:40: Lactic Acid Level 3.61*H 06/23/22 14:40: Lactic Acid Level 2.40*H 06/23/22 21:10: Lactic Acid Level 1.37 Exam Exam Patient acknowledged, consented, and participated in this virtual visit which was conducted using real time audio/video Vital Signs Date Time Temp Pulse Resp B/P (MAP) Pulse Ox O2 Delivery O2 Flow Rate FiO2 06/26/22 09:00 70 17 139/108 (118) 92 Room Air 06/26/22 08:00 53 16 136/75 (95) 100 Room Air 06/26/22 08:00 98 Room Air 06/26/22 08:00 36.8 06/26/22 07:00 56 06/26/22 07:00 60 130/80 (97) 97 Room Air 06/26/22 06:00 69 20 154/88 (110) 99 Room Air 06/26/22 05:00 66 20 149/78 (101) 97 Room Air 06/26/22 04:00 37.4 06/26/22 04:00 57 29 131/71 (91) 97 Room Air 06/26/22 04:00 97 Room Air 06/26/22 03:00 54 27 132/76 (94) 98 Room Air 06/26/22 02:00 75 19 94 Room Air 06/26/22 01:00 62 15 130/70 (90) 96 Room Air 06/26/22 01:00 62 06/26/22 00:00 99 Room Air 06/26/22 00:00 71 32 136/70 (92) 96 Room Air 06/25/22 23:00 72 14 143/79 (100) 97 Room Air 06/25/22 22:00 61 14 135/69 (91) 97 Room Air 06/25/22 21:00 61 20 126/79 (95) 99 Room Air 06/25/22 20:00 59 23 119/73 (88) 98 Room Air 06/25/22 20:00 99 Room Air 06/25/22 19:00 60 23 124/70 (88) 99 Room Air 06/25/22 19:00 62 06/25/22 18:00 69 25 115/91 (99) 97 Room Air 06/25/22 17:00 64 20 110/70 (83) 99 Room Air 06/25/22 16:04 37.0 06/25/22 16:00 Room Air 06/25/22 15:00 60 16 109/65 (80) 99 Room Air 06/25/22 14:00 57 23 107/65 (79) 99 Room Air 06/25/22 13:00 59 06/25/22 13:00 60 21 116/73 (87) 99 Room Air 06/25/22 12:15 Room Air 06/25/22 12:00 58 21 113/76 (88) 100 Room Air 06/25/22 12:00 37.6 06/25/22 11:00 60 10 111/72 (85) 99 Room Air 06/25/22 10:00 79 31 127/105 (112) 95 Room Air I & O 06/26/22 07:00 Intake Total 3140 ml Output Total 1400 ml Balance 1740 ml Height & Weight Height: 5'5.00" Weight: 183lbs. oz. 83.575638em; 38.08 BMI Method: General Appearance: No Apparent Distress, WD/WN, Chronically ill HEENT: PERRL/EOMI, Moist Mucous Membranes Neck: Normal Inspection, Supple Respiratory: Lungs Clear, Normal Breath Sounds Cardiovascular: Regular Rate, Rhythm Capillary Refill: Less Than 3 Seconds Peripheral Pulses: 3+ Dorsalis Pedis (R), 3+ Left Dors-Pedis (L), 3+ Radial Pulses (R), 3+ Radial Pulses (L) Gastrointestinal: soft, distended (minimal); No guarding, No rebound; tenderness (lower abdomen but seems less than previous days) Extremity: Normal Inspection, No Calf Tenderness Neurologic/Psychiatric: Alert, Oriented x3 Skin: Normal Color, Warm/Dry Lymphatic: No Adenopathy Results Lab Laboratory Tests 06/24/22 12:15 06/25/22 02:22 06/25/22 05:05 06/26/22 03:25 Assessment/Plan Assessment/Plan 1 DEONNA JOSEPH MD Jun 26, 2022 09:57
--- NOTE | 2022-06-26 10:13 | Progress Note - Surgery ---
MISTY STOUT 06/26/22 1013: Subjective Date Seen by a Provider: Jun 26, 2022 Time Seen by a Provider: 10:05 Subjective/Events-last exam Today patient reports he has been having multiple episodes of diarrhea since starting clear liquids yesterday. He was also found to be positive for E. Coli infection yesterday. Stool is watery and dark brown/black in color. Patient states he has to go to the bathroom right after taking anything by mouth. He rates his discomfort today at a 10/10 and states that he is unable to get comfortable in any position. Denies any pain on palpation of the abdomen but does appear to be distended throughout the abdomen. Today patient also has new report of what he believes to be a left sided "groin hernia". States he has had surgical correction of this atleast 8 years ago at [facility] but the hernia has returned. Reports the hernia is "stuck" but not painful. Review of Systems Pulmonary: Dyspnea, Cough; No Pleuritic Chest Pain Cardiovascular: No: Chest Pain, Palpitations Gastrointestinal: Diarrhea; No: Nausea, Vomiting Genitourinary: No Dysuria, No Hematuria Focused Exam Lactate Level 06/23/22 12:40: Lactic Acid Level 3.61*H 06/23/22 14:40: Lactic Acid Level 2.40*H 06/23/22 21:10: Lactic Acid Level 1.37 Objective Exam Vital Signs Date Time Temp Pulse Resp B/P (MAP) Pulse Ox O2 Delivery O2 Flow Rate FiO2 06/26/22 09:00 70 17 139/108 (118) 92 Room Air 06/26/22 08:00 53 16 136/75 (95) 100 Room Air 06/26/22 08:00 98 Room Air 06/26/22 08:00 36.8 06/26/22 07:00 56 06/26/22 07:00 60 130/80 (97) 97 Room Air 06/26/22 06:00 69 20 154/88 (110) 99 Room Air 06/26/22 05:00 66 20 149/78 (101) 97 Room Air 06/26/22 04:00 37.4 06/26/22 04:00 57 29 131/71 (91) 97 Room Air 06/26/22 04:00 97 Room Air 06/26/22 03:00 54 27 132/76 (94) 98 Room Air 06/26/22 02:00 75 19 94 Room Air 06/26/22 01:00 62 15 130/70 (90) 96 Room Air 06/26/22 01:00 62 06/26/22 00:00 99 Room Air 06/26/22 00:00 71 32 136/70 (92) 96 Room Air 06/25/22 23:00 72 14 143/79 (100) 97 Room Air 06/25/22 22:00 61 14 135/69 (91) 97 Room Air 06/25/22 21:00 61 20 126/79 (95) 99 Room Air 06/25/22 20:00 59 23 119/73 (88) 98 Room Air 06/25/22 20:00 99 Room Air 06/25/22 19:00 60 23 124/70 (88) 99 Room Air 06/25/22 19:00 62 06/25/22 18:00 69 25 115/91 (99) 97 Room Air 06/25/22 17:00 64 20 110/70 (83) 99 Room Air 06/25/22 16:04 37.0 06/25/22 16:00 Room Air 06/25/22 15:00 60 16 109/65 (80) 99 Room Air 06/25/22 14:00 57 23 107/65 (79) 99 Room Air 06/25/22 13:00 59 06/25/22 13:00 60 21 116/73 (87) 99 Room Air 06/25/22 12:15 Room Air 06/25/22 12:00 58 21 113/76 (88) 100 Room Air 06/25/22 12:00 37.6 06/25/22 11:00 60 10 111/72 (85) 99 Room Air I & O 06/26/22 07:00 Intake Total 3140 ml Output Total 1400 ml Balance 1740 ml Capillary Refill : Less Than 3 Seconds General Appearance: No Apparent Distress, WD/WN, Chronically ill HEENT: PERRL/EOMI, Moist Mucous Membranes Neck: Normal Inspection, Supple Respiratory: Chest Non Tender, Lungs Clear, Normal Breath Sounds, No Accessory Muscle Use, No Respiratory Distress Cardiovascular: Regular Rate, Rhythm, No Edema, No Murmur Peripheral Pulses: 3+ Dorsalis Pedis (R), 3+ Left Dors-Pedis (L), 3+ Radial Pulses (R), 3+ Radial Pulses (L) Gastrointestinal: soft, distended; No guarding, No rebound; tenderness (tenderness to deep palpation of the lower abdomen but discomfort is mostly due to distension) Extremity: Normal Inspection, No Calf Tenderness, No Pedal Edema Neurologic/Psychiatric: Alert, Oriented x3 Skin: Normal Color, Warm/Dry Lymphatic: No Adenopathy Results Lab Laboratory Tests 06/26/22 03:25: White Blood Count 13.2H, Red Blood Count 3.53L, Hemoglobin 10.1L, Hematocrit 29L , Mean Corpuscular Volume 83, Mean Corpuscular Hemoglobin 29, Mean Corpuscular Hemoglobin Concent 35, Red Cell Distribution Width 14.9H, Platelet Count 132, Mean Platelet Volume 12.2, Prothrombin Time 15.4H, INR Comment 1.2, Sodium Level 135, Potassium Level 3.4L, Chloride Level 105, Carbon Dioxide Level 21, Anion Gap 9, Blood Urea Nitrogen 16, Creatinine 0.91, Estimat Glomerular Filtration Rate 92, BUN/Creatinine Ratio 18, Glucose Level 124H, Calcium Level 7.7L, Corrected Calcium 8.8, Phosphorus Level 2.1L, Magnesium Level 2.0, Total Bilirubin 1.6H, Aspartate Amino Transf (AST/SGOT) 105H, Alanine Aminotransferase (ALT/SGPT) 67H, Alkaline Phosphatase 128, Total Protein 5.6L, Albumin 2.6L Microbiology 06/23/22 Blood Culture - Preliminary, Resulted Escherichia coli 06/23/22 MRSA Screen - Final, Complete Assessment/Plan Assessment/Plan Assessment/Plan Inf. mesenteric venousphlebitis RLQ and LLQ abdominal pain Diarrhea Mural thickening of sigmoid colon Blood cultures resulted in E. Coli infection, susceptibility pending Will continue Zosyn and order stool study with heme occult test to evaluate new onset diarrhea and dark stools. Zofran for nausea. Continue Lovenox anticoagulation (would continue anticoag for atleast 6 months). Clear liquid diet as patient tolerates. JONATHAN GARCIA DO 06/26/221851: Subjective Time Seen by a Provider: 12:32 Subjective/Events-last exam Pt seen and examined, complains of bloating with abdominal pain and thinks he has a hernia in left groin. He describes a lump, "that was cut out, but it came back". He also report diarrhea today. Review of Systems Pulmonary: Dyspnea, Cough; No Pleuritic Chest Pain Cardiovascular: No: Chest Pain, Palpitations Gastrointestinal: Abdominal Pain, Diarrhea; No: Nausea, Vomiting Genitourinary: No Dysuria, No Hematuria Objective Exam General Appearance: Chronically ill, Mild Distress (secondary to pain) HEENT: Moist Mucous Membranes; No Scleral Icterus (L), No Scleral Icterus (R) Respiratory: Lungs Clear, Normal Breath Sounds, No Accessory Muscle Use, No Respiratory Distress Cardiovascular: Regular Rate, Rhythm, No Edema, No Murmur Gastrointestinal: soft, distended; No guarding, No rebound; tenderness (tenderness to deep palpation of the lower abdomen but discomfort is mostly due to distension) Extremity: No Calf Tenderness, No Pedal Edema Neurologic/Psychiatric: Alert, Oriented x3 Skin: Normal Color, Warm/Dry Assessment/Plan Assessment/Plan Assessment/Plan Inf. mesenteric venousphlebitis RLQ and LLQ abdominal pain Diarrhea Mural thickening of sigmoid colon Bacteremia - Blood cultures resulted in E. Coli infection initial cultures susceptible to all ABX tested Will continue Zosyn and order stool study with heme occult test to evaluate new onset diarrhea and dark stools. Zofran for nausea. Continue Lovenox anticoagulation (would continue anticoag for atleast 6 months). Clear liquid diet as patient tolerates. Supervisory-Addendum Brief Verification & Attestation Participated in pt care: history, MDM, physical Personally performed: exam, history, MDM, supervision of care Care discussed with: Medical Student Procedures: n/a Verification and Attestation of Medical Student E/M Service A medical student performed and documented this service. I then reviewed and verified all information documented by the medical student and made modifications to such information, when appropriate. I personally performed a physical exam, medical decision making and then discussed any differences between the notes and made revisions as necessary to create one note. Jonathan Garcia , 06/26/22 , 18:52 MISTY STOUT Jun 26, 2022 10:13 JONATHAN GARCIA DO Jun 26, 2022 18:52
[2022-06-26] MEDS: ENOXAPARIN 100 MG/1 ML (LOVENOX) SYR SC SCH ×2 (11:26→23:41)
[2022-06-26] MEDS ORDERED: LOPERAMIDE 2 MG (IMODIUM) TABLET PO PRN (12:00)
[2022-06-26 18:26] VITALS: BP 161/82
[2022-06-26] MEDS ORDERED: RT-ALBUTEROL/IPRATROPIUM 3 ML (DUONEB) VIAL ONE (18:50)
[2022-06-26] MEDS: RT-ALBUTEROL/IPRATROPIUM 3 ML (DUONEB) VIAL INH PRN ×2 (19:02→23:52)
[2022-06-27] MEDS ORDERED: diphenhydrAMINE 25 MG TAB (BENADRYL) PO ONE (01:45)
[2022-06-27 03:44] LABS: INR 1.2 (0.8-1.4); PROTHROMBIN TIME PATIENT 15.7 SEC (12.2-14.7)
[2022-06-27] MEDS: PIPERACILLIN SODIUM/TAZOBACTAM 4.5 GM in NS (IVPB) 100 ML IV SCH ×3 (05:38→21:30)
[2022-06-27 06:11] VITALS: BP 129/62
--- NOTE | 2022-06-27 06:29 | Progress Note - Hospitalist ---
Subjective HPI/CC On Admission Date Seen by Provider: Jun 27, 2022 Time Seen by Provider: 11:30 Subjective/Events-last exam Patient doing well Family at bedside Multiple questions answered to the best my ability Checked meds and labs Lungs improved Review of Systems General: Fatigue, Malaise Pulmonary: Dyspnea Gastrointestinal: Abdominal Pain Objective Exam Vital Signs Vital Signs Date Time Temp Pulse Resp B/P (MAP) Pulse Ox O2 Delivery O2 Flow Rate FiO2 06/27/22 14:00 65 180/80 (113) 94 Room Air 06/27/22 12:48 36.9 06/27/22 12:00 18 06/27/22 06:11 21 Capillary Refill : Less Than 3 Seconds General Appearance: No Apparent Distress, WD/WN, Chronically ill Respiratory: No Accessory Muscle Use, No Respiratory Distress, Decreased Breath Sounds Cardiovascular: Regular Rate, Rhythm Neurologic/Psychiatric: Alert, Oriented x3, No Motor/Sensory Deficits, Normal Mood/Affect Results/Procedures Lab Laboratory Tests 06/27/22 03:09 Patient resulted labs reviewed. Assessment/Plan Assessment and Plan Assess & Plan/Chief Complaint Supportive care [facility] ICU Repeat CT tomorrow RAJINDER PALACIO DO Jun 27, 2022 06:29
[2022-06-27 07:19] LABS: ALBUMIN 2.6 GM/DL (3.2-4.5); POTASSIUM 3.5 MMOL/L (3.6-5.0)
[2022-06-27 07:20] LABS: BASOPHILS # (AUTO) 0.1 10^3/uL (0.0-0.1); BASOPHILS % (AUTO) 0 % (0-10); CALCIUM 7.7 MG/DL (8.5-10.1); EOSINOPHILS # (AUTO) 0.2 10^3/uL (0.0-0.3); EOSINOPHILS % (AUTO) 1 % (0-10); HEMATOCRIT 29 % (40-54); LYMPHOCYTES # (AUTO) 2.2 10^3/uL (1.0-4.0); LYMPHOCYTES % (AUTO) 14 % (12-44); MEAN CORPUSCULAR HEMOGLOBIN 30 pg (25-34); MEAN CORPUSCULAR HGB CONC 35 g/dL (32-36); MEAN CORPUSCULAR VOLUME 86 fL (80-99); MEAN PLATELET VOLUME 11.5 fL (9.0-12.2); MONOCYTES % (AUTO) 7 % (0-12); NEUTROPHILS # (AUTO) 11.4 10^3/uL (1.8-7.8); NEUTROPHILS % (AUTO) 75 % (42-75); PLATELET COUNT 168 10^3/uL (130-400); WHITE BLOOD COUNT 15.1 10^3/uL (4.3-11.0)
[2022-06-27 07:22] LABS: TOTAL PROTEIN 5.4 GM/DL (6.4-8.2)
[2022-06-27 07:23] LABS: BILIRUBIN,TOTAL 1.1 MG/DL (0.1-1.0)
[2022-06-27 07:25] LABS: CREATININE SERUM 0.97 MG/DL (0.60-1.30)
[2022-06-27] MEDS: POTASSIUM CL 10MEQ/50ML IVPB 50 ML IV SCH (07:31)
[2022-06-27] MEDS: MAGNESIUM 1 GM/100 ML IVPB 100 ML IV SCH (07:32)
[2022-06-27] MEDS: KCL 20 MEQ TAB (K-DUR) PO SCH (07:33)
[2022-06-27] MEDS ORDERED: KCL 20 MEQ TAB (K-DUR) PO ONE (08:00)
[2022-06-27] MEDS: FAMOTIDINE 20 MG (PEPCID) TABLET PO SCH (08:04)
[2022-06-27] MEDS: eZETimibe 10 MG (ZETIA) TABLET PO SCH (08:05)
[2022-06-27] MEDS: SERTRALINE 100 MG (ZOLOFT) TAB PO SCH (08:05)
[2022-06-27] MEDS: LOSARTAN 100 MG (COZAAR) TABLET PO SCH (08:05)
[2022-06-27] MEDS: ASPIRIN E.C. 81 MG (ECOTRIN) TAB PO SCH (08:05)
[2022-06-27] MEDS: RT-ALBUTEROL/IPRATROPIUM 3 ML (DUONEB) VIAL INH SCH ×4 (08:33→21:12)
[2022-06-27 08:42] LABS: BAND NEUTROPHILS 3 %; BASOPHILS % (MANUAL) 0 %; EOSINOPHILS % (MANUAL) 0 %; LYMPHOCYTES % (MANUAL) 20 %; MONOCYTES % (MANUAL) 7 %; NEUTROPHILS % (MANUAL) 70 %
[2022-06-27 08:43] LABS: ANISOCYTOSIS SLIGHT; TARGET CELLS SLIGHT
[2022-06-27] MEDS: PSYLLIUM POWDER (METAMUCIL) 5.8 GM PACKET PO SCH (09:12)
--- NOTE | 2022-06-27 09:47 | Tele-ICU Progress Note ---
Subjective Date Seen by a Provider: Jun 27, 2022 Subjective/Events-last exam This virtual visit was conducted using real time audio/video. Thank you for asking us to see this patient for bacteremia w E Coli, inferior mesenteric vein phlebitis, splenic vein thrombus. recent diverticulitis. Recent events: WCC rising, PE: VSS. O2 sat 99% on RA. Comfortable on camera. Obese. HEENT: No obvious masses, adenopathy or JVD. Chest: clear to auscultation. CV: RRR S1 S2 No murmur or added sounds. Abd: Slightly tender. Bowel sounds Y. : Unremarkable. Rocha N. INGREDIENT MIXER/psychiatric: Grossly intact. No obvious focal findings. Extremities: No edema. Capillary refill < 3 seconds. Skin: unremarkable. Results: Elevated WCC 15.1. Decreased Hb 10.0, K 3.5. CXR: not done . Available chart/ vitals / labs / images reviewed. Video assessment done using teleICU camera, rest of exam as per RN. A/P: Critical Care: critically ill patient. Cont. abx, merissa., pepcid. Monitor for sepsis. Replace K. Discussed with RN Beltran. Asked RN to reach out to eICU if any questions or concerns later. Time spent with patient/coordination of care with other health professionals (mins): 25 Sepsis Event Evaluation Height, Weight, BMI Height: 5'5.00" Weight: 183lbs. oz. 83.058444nj; 39.29 BMI Method: Exam Exam Patient acknowledged, consented, and participated in this virtual visit which was conducted using real time audio/video Vital Signs Date Time Temp Pulse Resp B/P (MAP) Pulse Ox O2 Delivery O2 Flow Rate FiO2 06/27/22 08:33 100 Room Air 06/27/22 08:00 54 19 92 Room Air 06/27/22 07:44 37.2 06/27/22 07:39 97 Room Air 06/27/22 07:00 58 06/27/22 07:00 60 19 98 Room Air 06/27/22 06:11 36.7 58 94 21 06/27/22 06:00 53 19 136/69 (91) 98 Room Air 06/27/22 05:00 57 17 95 Room Air 06/27/22 04:10 97 Room Air 06/27/22 04:00 58 18 94 Room Air 06/27/22 04:00 36.7 06/27/22 03:00 60 17 129/62 (84) 93 Room Air 06/27/22 02:00 61 15 130/84 (99) 97 Room Air 06/27/22 01:00 68 15 150/84 (106) 97 Room Air 06/27/22 01:00 68 06/27/22 00:00 36.8 06/27/22 00:00 73 19 142/90 (107) 99 Room Air 06/27/22 00:00 95 Room Air 06/26/22 23:52 100 Room Air 06/26/22 23:00 55 18 143/81 (101) 95 Room Air 06/26/22 22:00 57 18 132/72 (92) 94 Room Air 06/26/22 21:00 58 19 148/82 (104) 94 Room Air 06/26/22 20:00 63 20 151/77 (101) 98 Room Air 06/26/22 20:00 96 Room Air 06/26/22 19:53 36.6 06/26/22 19:03 98 Room Air 06/26/22 19:00 59 23 140/72 (94) 99 Room Air 06/26/22 19:00 62 06/26/22 18:26 35.8 70 97 21 06/26/22 18:00 70 19 117/85 (96) 98 Room Air 06/26/22 17:00 69 23 149/78 (101) 95 Room Air 06/26/22 16:00 61 23 152/80 (104) 98 Room Air 06/26/22 16:00 36.5 06/26/22 15:53 97 Room Air 06/26/22 15:00 70 22 161/82 (108) 99 Room Air 06/26/22 14:00 55 15 133/74 (93) 100 Room Air 06/26/22 13:00 93 25 136/82 (100) 98 Room Air 06/26/22 12:55 62 06/26/22 12:00 97 Room Air 06/26/22 12:00 58 12 131/91 (104) 100 Room Air 06/26/22 12:00 35.8 06/26/22 11:00 53 24 142/77 (98) 99 Room Air 06/26/22 10:00 56 17 123/69 (87) 94 Room Air I & O 06/27/22 07:00 Intake Total 1325 ml Output Total 1350 ml Balance -25 ml Height & Weight Height: 5'5.00" Weight: 183lbs. oz. 83.920368fp; 39.29 BMI Method: General Appearance: Chronically ill, Mild Distress (secondary to pain) HEENT: Moist Mucous Membranes; No Scleral Icterus (L), No Scleral Icterus (R) Neck: Normal Inspection, Supple Respiratory: Lungs Clear, Normal Breath Sounds, No Accessory Muscle Use, No Respiratory Distress Cardiovascular: Regular Rate, Rhythm, No Edema, No Murmur Capillary Refill: Less Than 3 Seconds Peripheral Pulses: 3+ Dorsalis Pedis (R), 3+ Left Dors-Pedis (L), 3+ Radial Pulses (R), 3+ Radial Pulses (L) Gastrointestinal: soft, distended; No guarding, No rebound; tenderness (tenderness to deep palpation of the lower abdomen but discomfort is mostly due to distension) Extremity: No Calf Tenderness, No Pedal Edema Neurologic/Psychiatric: Alert, Oriented x3 Skin: Normal Color, Warm/Dry Lymphatic: No Adenopathy Results Lab Laboratory Tests 06/26/22 03:25 06/27/22 03:09 Assessment/Plan Assessment/Plan See free text. Critical Care: Critically Ill Patient BETH LUNSFORD MD Jun 27, 2022 09:47
--- NOTE | 2022-06-27 10:33 | Progress Note - Surgery ---
MISTY STOUT 06/27/22 1033: Subjective Date Seen by a Provider: Jun 27, 2022 Time Seen by a Provider: 10:25 Subjective/Events-last exam Patient reports he is feeling much better today. He was able to sleep well throughout the night as his diarrhea is improving and he only got up 3-4 times t o have a bowel movement. He states his stool is still watery but not as dark in color. At present, patient is laying on his side and states the pressure he feels in his abdomen changes depending on which way he is sleeping. He states he has no pain, only this "pressure". Also reports not being as bloated as yesterday. He has been able to take sips of liquids. Review of Systems General: No Chills, No Night Sweats Pulmonary: Dyspnea; No Cough Cardiovascular: No: Chest Pain, Palpitations Gastrointestinal: Diarrhea; No: Nausea, Vomiting Objective Exam Vital Signs Date Time Temp Pulse Resp B/P (MAP) Pulse Ox O2 Delivery O2 Flow Rate FiO2 06/27/22 10:00 71 17 146/73 (97) 94 Room Air 06/27/22 09:00 77 23 97 Room Air 06/27/22 08:33 100 Room Air 06/27/22 08:00 54 19 92 Room Air 06/27/22 07:44 37.2 06/27/22 07:39 97 Room Air 06/27/22 07:00 58 06/27/22 07:00 60 19 98 Room Air 06/27/22 06:11 36.7 58 94 21 06/27/22 06:00 53 19 136/69 (91) 98 Room Air 06/27/22 05:00 57 17 95 Room Air 06/27/22 04:10 97 Room Air 06/27/22 04:00 58 18 94 Room Air 06/27/22 04:00 36.7 06/27/22 03:00 60 17 129/62 (84) 93 Room Air 06/27/22 02:00 61 15 130/84 (99) 97 Room Air 06/27/22 01:00 68 15 150/84 (106) 97 Room Air 06/27/22 01:00 68 06/27/22 00:00 36.8 06/27/22 00:00 73 19 142/90 (107) 99 Room Air 06/27/22 00:00 95 Room Air 06/26/22 23:52 100 Room Air 06/26/22 23:00 55 18 143/81 (101) 95 Room Air 06/26/22 22:00 57 18 132/72 (92) 94 Room Air 06/26/22 21:00 58 19 148/82 (104) 94 Room Air 06/26/22 20:00 63 20 151/77 (101) 98 Room Air 06/26/22 20:00 96 Room Air 06/26/22 19:53 36.6 06/26/22 19:03 98 Room Air 06/26/22 19:00 59 23 140/72 (94) 99 Room Air 06/26/22 19:00 62 06/26/22 18:26 35.8 70 97 21 06/26/22 18:00 70 19 117/85 (96) 98 Room Air 06/26/22 17:00 69 23 149/78 (101) 95 Room Air 06/26/22 16:00 61 23 152/80 (104) 98 Room Air 06/26/22 16:00 36.5 06/26/22 15:53 97 Room Air 06/26/22 15:00 70 22 161/82 (108) 99 Room Air 06/26/22 14:00 55 15 133/74 (93) 100 Room Air 06/26/22 13:00 93 25 136/82 (100) 98 Room Air 06/26/22 12:55 62 06/26/22 12:00 97 Room Air 06/26/22 12:00 58 12 131/91 (104) 100 Room Air 06/26/22 12:00 35.8 06/26/22 11:00 53 24 142/77 (98) 99 Room Air I & O 06/27/22 07:00 Intake Total 1325 ml Output Total 1350 ml Balance -25 ml Capillary Refill : Less Than 3 Seconds General Appearance: No Apparent Distress, Chronically ill HEENT: Moist Mucous Membranes; No Scleral Icterus (L), No Scleral Icterus (R) Neck: Normal Inspection, Supple Respiratory: Lungs Clear, Normal Breath Sounds, No Accessory Muscle Use, No Respiratory Distress Cardiovascular: Regular Rate, Rhythm, No Edema, No Murmur Peripheral Pulses: 3+ Dorsalis Pedis (R), 3+ Left Dors-Pedis (L), 3+ Radial Pulses (R), 3+ Radial Pulses (L) Gastrointestinal: soft, distended; No guarding, No rebound; tenderness ( tenderness to deep palpation of the lower abdomen but discomfort is mostly due to distension) Extremity: No Calf Tenderness, No Pedal Edema Neurologic/Psychiatric: Alert, Oriented x3 Skin: Normal Color, Warm/Dry Lymphatic: No Adenopathy Results Lab Laboratory Tests 06/27/22 03:09: White Blood Count 15.1H, Red Blood Count 3.36L, Hemoglobin 10.0L, Hematocrit 29L , Mean Corpuscular Volume 86, Mean Corpuscular Hemoglobin 30, Mean Corpuscular Hemoglobin Concent 35, Red Cell Distribution Width 15.9H, Platelet Count 168, Mean Platelet Volume 11.5, Immature Granulocyte % (Auto) 3, Neutrophils (%) (Auto) 75, Lymphocytes (%) (Auto) 14, Monocytes (%) (Auto) 7, Eosinophils (%) (Auto) 1, Basophils (%) (Auto) 0, Neutrophils # (Auto) 11.4H, Lymphocytes # (Auto) 2.2, Monocytes # (Auto) 1.0, Eosinophils # (Auto) 0.2, Basophils # (Auto) 0.1, Immature Granulocyte # (Auto) 0.4H, Neutrophils % (Manual) 70, Lymphocytes % (Manual) 20, Monocytes % (Manual) 7, Eosinophils % (Manual) 0, Basophils % (Manual) 0, Band Neutrophils 3, Anisocytosis SLIGHT, Target Cells SLIGHT, Prothrombin Time 15.7H, INR Comment 1.2, Sodium Level 137, Potassium Level 3.5L, Chloride Level 108H, Carbon Dioxide Level 20L, Anion Gap 9, Blood Urea Nitrogen 12, Creatinine 0.97, Estimat Glomerular Filtration Rate 86, BUN/Creatinine Ratio 12, Glucose Level 133H, Calcium Level 7.7L, Corrected Calcium 8.8, Phosphorus Level 2.7, Magnesium Level 1.9, Total Bilirubin 1.1H, Aspartate Amino Transf (AST/SGOT) 62H, Alanine Aminotransferase (ALT/SGPT) 59H, Alkaline Phosphatase 114, Total Protein 5.4L, Albumin 2.6L Microbiology 06/26/22 C. difficile GDH Antigen & Toxins - Final, Complete 06/25/22 Blood Culture - Preliminary, Resulted No growth 06/23/22 MRSA Screen - Final, Complete Assessment/Plan Assessment/Plan Assessment/Plan Inf. mesenteric venousphlebitis RLQ and LLQ abdominal pain Leukocytosis - WBC 15.1 today Diarrhea Mural thickening of sigmoid colon Bacteremia - Blood cultures resulted in E. Coli infection initial cultures susceptible to all ABX tested Stool study was negative for C. Diff. Consider heme occult testing to evaluate dark stools. Also consider repeat CT abd/pelvis to assess if there has been any improvement with the anticoagulation and treatment that has been given. Continue Zosyn, Zofran prn, and lovenox for anticoagulation. RAH GARCIA DO 06/27/22 1444: Subjective Time Seen by a Provider: 12:50 Subjective/Events-last exam Pt seen and examined, states his pain is a little better but still feels a little bloated. He is also still having diarrhea, thinks it may be darker but not red. Review of Systems General: No Chills, No Night Sweats Pulmonary: Dyspnea; No Cough Cardiovascular: No: Chest Pain, Palpitations Gastrointestinal: Abdominal Pain (with bloating), Diarrhea; No: Nausea, Vomiting Objective Exam General Appearance: No Apparent Distress, Chronically ill HEENT: Moist Mucous Membranes; No Scleral Icterus (L), No Scleral Icterus (R) Respiratory: Lungs Clear, Normal Breath Sounds, No Accessory Muscle Use, No Respiratory Distress Cardiovascular: Regular Rate, Rhythm, No Murmur Gastrointestinal: soft, distended (possibly improved compared to yesterday); No guarding, No rebound; tenderness (tenderness to deep palpation of the lower abdomen but discomfort is mostly due to distension) Extremity: No Calf Tenderness Neurologic/Psychiatric: Alert, Oriented x3 Assessment/Plan Assessment/Plan Assessment/Plan Inf. mesenteric venous phlebitis RLQ and LLQ abdominal pain Leukocytosis - WBC 15.1 today Diarrhea Mural thickening of sigmoid colon Bacteremia - Blood cultures resulted in E. Coli infection initial cultures manish ceptible to all ABX tested Stool study was negative for C. Diff. Consider heme occult testing to evaluate dark stools. Also consider repeat CT abd/pelvis to assess if there has been any improvement with the anticoagulation and treatment that has been given. Continue Zosyn, Zofran prn, and lovenox for anticoagulation. Supervisory-Addendum Brief Verification & Attestation Participated in pt care: history, MDM, physical Personally performed: exam, history, MDM, supervision of care Care discussed with: Medical Student Procedures: n/a Verification and Attestation of Medical Student E/M Service A medical student performed and documented this service. I then reviewed and verified all information documented by the medical student and made ginny fications to such information, when appropriate. I personally performed a physical exam, medical decision making and then discussed any differences between the notes and made revisions as necessary to create one note. Rah Garcia , 06/27/22 , 14:43 MISTY STOUT Jun 27, 2022 10:33 RAH GARCIA DO Jun 27, 2022 14:44
[2022-06-27] MEDS: ENOXAPARIN 100 MG/1 ML (LOVENOX) SYR SC SCH ×2 (10:45→21:31)
[2022-06-27] MEDS: diphenhydrAMINE 25 MG TAB (BENADRYL) PO PRN ×2 (16:12→21:31)
[2022-06-28] MEDS: RT-ALBUTEROL/IPRATROPIUM 3 ML (DUONEB) VIAL INH SCH ×6 (02:17→22:44)
[2022-06-28 05:37] LABS: INR 1.2 (0.8-1.4); PROTHROMBIN TIME PATIENT 15.8 SEC (12.2-14.7)
[2022-06-28 05:41] LABS: MAGNESIUM 1.8 MG/DL (1.6-2.4); PHOSPHORUS 3.2 MG/DL (2.3-4.7)
[2022-06-28] MEDS: PIPERACILLIN SODIUM/TAZOBACTAM 4.5 GM in NS (IVPB) 100 ML IV SCH (05:44)
--- NOTE | 2022-06-28 05:50 | Progress Note - Hospitalist ---
Subjective HPI/CC On Admission Date Seen by Provider: Jun 28, 2022 Time Seen by Provider: 09:00 Subjective/Events-last exam Pt is doing about the same Repeat CT per surgery today Labs reviewed Checked meds and labs No falls Review of Systems General: Fatigue, Malaise Pulmonary: Dyspnea Gastrointestinal: Abdominal Pain Objective Exam Vital Signs Vital Signs Date Time Temp Pulse Resp B/P (MAP) Pulse Ox O2 Delivery O2 Flow Rate FiO2 06/29/22 04:00 94 Room Air 06/29/22 04:00 107 176/90 (118) 06/29/22 03:00 23 06/28/22 20:00 37.2 06/27/22 06:11 21 Capillary Refill : Less Than 3 Seconds General Appearance: No Apparent Distress, WD/WN, Chronically ill Respiratory: Lungs Clear, Normal Breath Sounds Cardiovascular: Regular Rate, Rhythm Neurologic/Psychiatric: Alert, Oriented x3, No Motor/Sensory Deficits, Normal Mood/Affect Results/Procedures Lab Laboratory Tests 06/28/22 08:57 06/28/22 20:28 06/29/22 04:51 Patient resulted labs reviewed. Assessment/Plan Assessment and Plan Assess & Plan/Chief Complaint Supportive care [facility] ICU Repeat CT today Critical Care Critically Ill Patient PALACIORAJINDER BANG DO Jun 28, 2022 05:50
[2022-06-28] MEDS: POTASSIUM CL 10MEQ/50ML IVPB 50 ML IV SCH ×2 (06:41→23:35)
[2022-06-28] MEDS: KCL 20 MEQ TAB (K-DUR) PO SCH (06:42)
[2022-06-28] MEDS: MAGNESIUM 1 GM/100 ML IVPB 100 ML IV SCH (06:42)
[2022-06-28] MEDS: ASPIRIN E.C. 81 MG (ECOTRIN) TAB PO SCH (08:34)
[2022-06-28] MEDS: eZETimibe 10 MG (ZETIA) TABLET PO SCH (08:34)
[2022-06-28] MEDS: PSYLLIUM POWDER (METAMUCIL) 5.8 GM PACKET PO SCH (08:34)
[2022-06-28] MEDS: SERTRALINE 100 MG (ZOLOFT) TAB PO SCH (08:35)
[2022-06-28] MEDS: FAMOTIDINE 20 MG (PEPCID) TABLET PO SCH (08:35)
[2022-06-28] MEDS: LOSARTAN 100 MG (COZAAR) TABLET PO SCH (08:35)
[2022-06-28 09:00] LABS: BASOPHILS # (AUTO) 0.1 10^3/uL (0.0-0.1); BASOPHILS % (AUTO) 0 % (0-10); EOSINOPHILS # (AUTO) 0.2 10^3/uL (0.0-0.3); EOSINOPHILS % (AUTO) 2 % (0-10); HEMATOCRIT 32 % (40-54); HEMOGLOBIN 10.8 g/dL (13.3-17.7); LYMPHOCYTES # (AUTO) 1.7 10^3/uL (1.0-4.0); LYMPHOCYTES % (AUTO) 12 % (12-44); MEAN CORPUSCULAR HEMOGLOBIN 29 pg (25-34); MEAN CORPUSCULAR HGB CONC 34 g/dL (32-36); MEAN CORPUSCULAR VOLUME 84 fL (80-99); MEAN PLATELET VOLUME 10.5 fL (9.0-12.2); MONOCYTES # (AUTO) 0.7 10^3/uL (0.0-1.0); MONOCYTES % (AUTO) 5 % (0-12); NEUTROPHILS # (AUTO) 10.5 10^3/uL (1.8-7.8); NEUTROPHILS % (AUTO) 77 % (42-75); PLATELET COUNT 219 10^3/uL (130-400); WHITE BLOOD COUNT 13.6 10^3/uL (4.3-11.0)
[2022-06-28 09:13] LABS: ALBUMIN 2.9 GM/DL (3.2-4.5)
[2022-06-28 09:14] LABS: POTASSIUM 3.2 MMOL/L (3.6-5.0)
[2022-06-28 09:15] LABS: CALCIUM 8.1 MG/DL (8.5-10.1)
[2022-06-28 09:16] LABS: TOTAL PROTEIN 6.3 GM/DL (6.4-8.2)
[2022-06-28 09:18] LABS: BILIRUBIN,TOTAL 1.3 MG/DL (0.1-1.0)
[2022-06-28 09:20] LABS: CREATININE SERUM 0.85 MG/DL (0.60-1.30)
[2022-06-28 09:43] LABS: EOSINOPHILS % (MANUAL) 2 %; LYMPHOCYTES % (MANUAL) 9 %; MONOCYTES % (MANUAL) 5 %; NEUTROPHILS % (MANUAL) 84 %; POLYCHROMASIA SLIGHT
[2022-06-28] MEDS: ENOXAPARIN 100 MG/1 ML (LOVENOX) SYR SC SCH ×2 (11:14→21:09)
[2022-06-28] MEDS: diphenhydrAMINE 25 MG TAB (BENADRYL) PO PRN ×2 (11:14→21:08)
--- NOTE | 2022-06-28 12:06 | Tele-ICU Progress Note ---
Subjective Date Seen by a Provider: Jun 28, 2022 Time Seen by a Provider: 12:06 Subjective/Events-last exam (Tele-ICU Physician , Progress Note ) Service provided via interactive audio and video telecommunications E-CARE system to a patient admitted to ICU bed in [facility]. Available chart/ vitals / labs / Images reviewed Video assessment done using teleICU camera, rest of exam as per RN Discussed with RN Events overnight : Afebrile hemodynamically stable Respiratory - ra I/O = even Drips: ns 75 Pressors- no Consultants: sx Hospital course: Patient is seen today due to persistent GI w/up . diarrhea , uto A/P inf. 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 Discussed with RN to reach out if any questions or concerns A total of 25 minutes of critical care time was devoted to this patient today, required to treat and/or prevent further deterioration of critical care condition ( as above ) . I am remotely monitoring this patient from another state. I am unable to do the bedside exam, and history/physical and pertinent information is taken from other notes in the computer and bedside staff. Sepsis Event Evaluation Height, Weight, BMI Height: 5'5.00" Weight: 183lbs. oz. 83.461885ly; 39.84 BMI Method: Exam Exam Patient acknowledged, consented, and participated in this virtual visit which w as conducted using real time audio/video Vital Signs Date Time Temp Pulse Resp B/P (MAP) Pulse Ox O2 Delivery O2 Flow Rate FiO2 06/28/22 11:00 69 19 152/73 (99) 99 Room Air 06/28/22 10:14 99 Room Air 06/28/22 10:00 63 21 153/87 (109) 99 Room Air 06/28/22 09:00 64 22 165/84 (111) 98 Room Air 06/28/22 08:00 66 15 171/96 (121) 99 Room Air 06/28/22 08:00 37.0 06/28/22 07:08 68 06/28/22 07:00 76 19 172/89 (116) 98 Room Air 06/28/22 06:47 99 Room Air 06/28/22 06:00 72 29 157/85 (109) 98 Room Air 06/28/22 05:00 70 18 167/95 (134) 98 Room Air 06/28/22 04:00 73 18 171/89 (119) 97 Room Air 06/28/22 04:00 96 Room Air 06/28/22 03:00 78 21 175/89 (123) 98 Room Air 06/28/22 02:17 99 Room Air 06/28/22 02:00 64 18 154/87 (108) 97 Room Air 06/28/22 01:00 63 16 165/88 (123) 96 Room Air 06/28/22 01:00 63 06/28/22 00:01 96 Room Air 06/28/22 00:00 69 21 158/88 (111) 97 Room Air 06/27/22 23:00 89 11 163/96 (115) 99 06/27/22 22:00 78 23 172/84 (120) 98 06/27/22 21:12 100 Room Air 06/27/22 21:00 72 15 170/81 (109) 98 06/27/22 20:07 80 27 166/94 (111) 98 06/27/22 20:01 36.8 06/27/22 20:00 96 Room Air 06/27/22 19:32 81 30 96 06/27/22 19:00 81 06/27/22 19:00 81 21 96 Room Air 06/27/22 18:25 98 Room Air 06/27/22 18:00 62 22 96 Room Air 06/27/22 17:00 68 26 142/79 (100) 98 Room Air 06/27/22 16:00 98 Room Air 06/27/22 16:00 80 155/79 (104) 96 Room Air 06/27/22 16:00 36.7 06/27/22 15:25 100 Room Air 06/27/22 15:00 69 28 155/70 (98) 94 Room Air 06/27/22 14:00 65 180/80 (113) 94 Room Air 06/27/22 13:00 98 162/87 (112) 96 Room Air 06/27/22 12:48 36.9 06/27/22 12:40 61 I & O 06/28/22 06:59 Intake Total 2000 ml Output Total 2170 ml Balance -170 ml Height & Weight Height: 5'5.00" Weight: 183lbs. oz. 83.130155op; 39.84 BMI Method: General Appearance: No Apparent Distress, WD/WN, Chronically ill HEENT: Moist Mucous Membranes; No Scleral Icterus (L), No Scleral Icterus (R) Neck: Normal Inspection, Supple Respiratory: No Accessory Muscle Use, No Respiratory Distress, Decreased Breath Sounds Cardiovascular: Regular Rate, Rhythm Capillary Refill: Less Than 3 Seconds Peripheral Pulses: 3+ Dorsalis Pedis (R), 3+ Left Dors-Pedis (L), 3+ Radial Pulses (R), 3+ Radial Pulses (L) Gastrointestinal: soft, distended (possibly improved compared to yesterday); No guarding, No rebound; tenderness (tenderness to deep palpation of the lower abdomen but discomfort is mostly due to distension) Extremity: No Calf Tenderness Neurologic/Psychiatric: Alert, Oriented x3, No Motor/Sensory Deficits, Normal Mood/Affect Skin: Normal Color, Warm/Dry Lymphatic: No Adenopathy Results Lab Laboratory Tests 06/27/22 03:09 06/28/22 04:50 06/28/22 08:57 Assessment/Plan Assessment/Plan 1 DEONNA JOSEPH MD Jun 28, 2022 12:06
[2022-06-28] MEDS: ceFAZolin INJECTION 2,000 MG in NS (IVPB) 50 ML IV SCH ×2 (14:48→21:08)
[2022-06-28] MEDS ORDERED: NS 100 ML (IVPB) BAG IV ONE (15:00)
[2022-06-28] MEDS ORDERED: IOHEXOL 350 MG/ML 100 ML (OMNIPAQUE 350) VIAL IV ONE (15:00)
[2022-06-28] MEDS ORDERED: HOLD METFORMIN - RECEIVED CONTRAST 20 ML VIAL IV SCH (15:00)
[2022-06-28] MEDS ORDERED: CATHETER FLUSH 10 ML SYR IV PRN (15:00)
--- NOTE | 2022-06-28 15:01 | Progress Note - Surgery ---
Subjective Date Seen by a Provider: Jun 28, 2022 Time Seen by a Provider: 08:50 Subjective/Events-last exam Having bowel function. Pain llq still there maybe better. Feeling bloated. Tolerating liquids. No significant n/v. Short of breath from distention. Denies fever sweats chills or chest pain. Objective Exam Vital Signs Date Time Temp Pulse Resp B/P (MAP) Pulse Ox O2 Delivery O2 Flow Rate FiO2 06/28/22 14:12 98 Room Air 06/28/22 13:23 66 06/28/22 12:00 37.0 06/28/22 12:00 80 11 160/117 (131) 99 Room Air 06/28/22 12:00 96 Room Air 06/28/22 11:00 69 19 152/73 (99) 99 Room Air 06/28/22 10:14 99 Room Air 06/28/22 10:00 63 21 153/87 (109) 99 Room Air 06/28/22 09:00 64 22 165/84 (111) 98 Room Air 06/28/22 08:00 96 Room Air 06/28/22 08:00 66 15 171/96 (121) 99 Room Air 06/28/22 08:00 37.0 06/28/22 07:08 68 06/28/22 07:00 76 19 172/89 (116) 98 Room Air 06/28/22 06:47 99 Room Air 06/28/22 06:00 72 29 157/85 (109) 98 Room Air 06/28/22 05:00 70 18 167/95 (134) 98 Room Air 06/28/22 04:00 73 18 171/89 (119) 97 Room Air 06/28/22 04:00 96 Room Air 06/28/22 03:00 78 21 175/89 (123) 98 Room Air 06/28/22 02:17 99 Room Air 06/28/22 02:00 64 18 154/87 (108) 97 Room Air 06/28/22 01:00 63 16 165/88 (123) 96 Room Air 06/28/22 01:00 63 06/28/22 00:01 96 Room Air 06/28/22 00:00 69 21 158/88 (111) 97 Room Air 06/27/22 23:00 89 11 163/96 (115) 99 06/27/22 22:00 78 23 172/84 (120) 98 06/27/22 21:12 100 Room Air 06/27/22 21:00 72 15 170/81 (109) 98 06/27/22 20:07 80 27 166/94 (111) 98 06/27/22 20:01 36.8 06/27/22 20:00 96 Room Air 06/27/22 19:32 81 30 96 06/27/22 19:00 81 06/27/22 19:00 81 21 96 Room Air 06/27/22 18:25 98 Room Air 06/27/22 18:00 62 22 96 Room Air 06/27/22 17:00 68 26 142/79 (100) 98 Room Air 06/27/22 16:00 98 Room Air 06/27/22 16:00 80 155/79 (104) 96 Room Air 06/27/22 16:00 36.7 06/27/22 15:25 100 Room Air 06/27/22 15:00 69 28 155/70 (98) 94 Room Air I & O 06/28/22 07:00 Intake Total 2000 ml Output Total 2170 ml Balance -170 ml Capillary Refill : Less Than 3 Seconds General Appearance: No Apparent Distress, WD/WN, Chronically ill HEENT: Normal ENT Inspection, Moist Mucous Membranes; No Scleral Icterus (L), No Scleral Icterus (R) Neck: Normal Inspection, Supple Respiratory: Chest Non Tender, No Accessory Muscle Use, No Respiratory Distress Cardiovascular: Regular Rate, Rhythm, No JVD Peripheral Pulses: 3+ Dorsalis Pedis (R), 3+ Left Dors-Pedis (L), 3+ Radial Pulses (R), 3+ Radial Pulses (L) Gastrointestinal: soft, distended (mild); No guarding, No rebound; tenderness (LLQ minimal) Extremity: No Calf Tenderness Neurologic/Psychiatric: Alert, Oriented x3, No Motor/Sensory Deficits, Normal Mood/Affect Skin: Normal Color, Warm/Dry Lymphatic: No Adenopathy Results Lab Laboratory Tests 06/28/22 04:50: Platelet Count 216, Prothrombin Time 15.8H, INR Comment 1.2, Phosphorus Level 3.2, Magnesium Level 1.8 06/28/22 08:57: Platelet Count 219, White Blood Count 13.6H, Red Blood Count 3.74L, Hemoglobin 10.8L, Hematocrit 32L, Mean Corpuscular Volume 84, Mean Corpuscular Hemoglobin 29, Mean Corpuscular Hemoglobin Concent 34, Red Cell Distribution Width 15.8H, Mean Platelet Volume 10.5, Immature Granulocyte % (Auto) 4, Neutrophils (%) (Auto) 77H, Lymphocytes (%) (Auto) 12, Monocytes (%) (Auto) 5, Eosinophils (%) (Auto) 2, Basophils (%) (Auto) 0, Neutrophils # (Auto) 10.5H, Lymphocytes # (Auto) 1.7, Monocytes # (Auto) 0.7, Eosinophils # (Auto) 0.2, Basophils # (Auto) 0.1, Immature Granulocyte # (Auto) 0.5H, Neutrophils % (Manual) 84, Lymphocytes % (Manual) 9, Monocytes % (Manual) 5, Eosinophils % (Manual) 2, Polychromasia SLIGHT, Sodium Level 138, Potassium Level 3.2L, Chloride Level 104, Carbon Dioxide Level 23, Anion Gap 11, Blood Urea Nitrogen 7, Creatinine 0.85, Estimat Glomerular Filtration Rate 95, BUN/Creatinine Ratio 8, Glucose Level 109H, Calcium Level 8.1L, Corrected Calcium 9.0, Total Bilirubin 1.3H, Aspartate Amino Transf (AST/SGOT) 49H, Alanine Aminotransferase (ALT/SGPT) 53, Alkaline Phosphatase 119, Total Protein 6.3L, Albumin 2.9L Microbiology 06/26/22 C. difficile GDH Antigen & Toxins - Final, Complete 06/25/22 Blood Culture - Preliminary, Resulted No growth 06/23/22 MRSA Screen - Final, Complete Assessment/Plan Assessment/Plan Assessment/Plan Inf. mesenteric venous phlebitis RLQ and LLQ abdominal pain Leukocytosis - WBC down slightly today Diarrhea Mural thickening of sigmoid colon Bacteremia - Blood cultures resulted in E. Coli infection initial cultures susceptible to all ABX tested Stool study was negative for C. Diff. Will repeat CT abd/pelvis to assess if there has been any improvement with the anticoagulation and treatment that has been given. Continue Zosyn, Zofran prn, and lovenox for anticoagulation. DINAH VELASQUEZ DO Jun 28, 2022 15:01
--- NOTE | 2022-06-28 16:15 | Diagnostic Imaging Report ---
PROCEDURE: CT abdomen and pelvis with contrast. TECHNIQUE: Multiple contiguous axial images were obtained through the abdomen and pelvis after administration of intravenous contrast. Auto Exposure Controls were utilized during the CT exam to meet ALARA standards for radiation dose reduction. All CT scans use one or more of the following dose optimizing techniques: Automated exposure control, MA and/or KvP adjustment based on patient size and exam type or iterative reconstruction. INDICATION: Inferior mesenteric venous phlebitis and mural thickening of sigmoid colon. COMPARISON: 06/23/2022. FINDINGS: There has been development of moderate amount of bilateral pleural fluid with subjacent atelectasis in the lung bases. No focal hepatic, gallbladder, pancreatic, adrenal gland, or splenic lesion is identified. Kidneys are also stable and unremarkable. Similar to the previous study, there is moderate mural thickening at the sigmoid colon with surrounding edema and inflammation suggestive of diverticulitis. There is no evidence of pericolonic fluid collection to indicate abscess, although there is nonopacification of left inferior mesenteric vein with mild surrounding edema reaching the level of the confluence with splenic vein. Apparent filling defect extends into the confluence of portal vein with a slight progression of thrombus into portal vein when compared to previous study. There is no evidence of appendiceal inflammation. Unopacified bladder is unremarkable. Fat is herniated into the right inguinal canal. 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 There has been mild worsening of the extent of venous thrombus into the main portal vein, and bilateral pleural effusions have developed. Dictated by: Dictated on workstation # [id number]
[2022-06-28 20:50] LABS: MAGNESIUM 1.8 MG/DL (1.6-2.4); POTASSIUM 3.2 MMOL/L (3.6-5.0)
[2022-06-29] MEDS: POTASSIUM CL 10MEQ/50ML IVPB 50 ML IV SCH ×6 (00:35→08:36)
[2022-06-29] MEDS ORDERED: amLODIPine 5 MG (NORVASC) TAB PO ONE (01:00)
[2022-06-29] MEDS: RT-ALBUTEROL/IPRATROPIUM 3 ML (DUONEB) VIAL INH SCH ×6 (02:48→21:42)
[2022-06-29 05:27] LABS: BASOPHILS % (AUTO) 0 % (0-10); EOSINOPHILS # (AUTO) 0.2 10^3/uL (0.0-0.3); EOSINOPHILS % (AUTO) 2 % (0-10); HEMATOCRIT 31 % (40-54); HEMOGLOBIN 10.4 g/dL (13.3-17.7); LYMPHOCYTES # (AUTO) 1.7 10^3/uL (1.0-4.0); LYMPHOCYTES % (AUTO) 16 % (12-44); MEAN CORPUSCULAR HEMOGLOBIN 29 pg (25-34); MEAN CORPUSCULAR HGB CONC 34 g/dL (32-36); MEAN CORPUSCULAR VOLUME 85 fL (80-99); MEAN PLATELET VOLUME 10.4 fL (9.0-12.2); MONOCYTES # (AUTO) 0.6 10^3/uL (0.0-1.0); MONOCYTES % (AUTO) 6 % (0-12); NEUTROPHILS % (AUTO) 74 % (42-75); PLATELET COUNT 246 10^3/uL (130-400); WHITE BLOOD COUNT 10.9 10^3/uL (4.3-11.0)
[2022-06-29 05:52] LABS: ALBUMIN 2.9 GM/DL (3.2-4.5); BILIRUBIN,TOTAL 0.9 MG/DL (0.1-1.0); CALCIUM 8.3 MG/DL (8.5-10.1); CREATININE SERUM 0.79 MG/DL (0.60-1.30); POTASSIUM 3.5 MMOL/L (3.6-5.0); TOTAL PROTEIN 6.1 GM/DL (6.4-8.2)
[2022-06-29] MEDS: KCL 20 MEQ TAB (K-DUR) PO SCH (06:05)
[2022-06-29] MEDS: MAGNESIUM 1 GM/100 ML IVPB 100 ML IV SCH (06:05)
[2022-06-29] MEDS: ceFAZolin INJECTION 2,000 MG in NS (IVPB) 50 ML IV SCH ×3 (06:14→21:38)
--- NOTE | 2022-06-29 07:14 | Progress Note - Surgery ---
IAM GALLO 06/29/22 0714: Subjective Date Seen by a Provider: Jun 29, 2022 Time Seen by a Provider: 08:20 Subjective/Events-last exam Patient is sitting up in bed today and is in good spirits Abdominal pain is currently well controlled Denies any fever or chills Was able to ambulate yesterday Is tolerating diet well, Last bowel movement was late last night, was still diarrhea Is using incentive spirometry No complaints of nausea/vomiting Slept well Denies any SOB Objective Exam Vital Signs Date Time Temp Pulse Resp B/P (MAP) Pulse Ox O2 Delivery O2 Flow Rate FiO2 06/29/22 06:00 75 19 160/85 (110) 100 Room Air 06/29/22 05:00 80 20 165/86 (112) 100 Room Air 06/29/22 04:00 94 Room Air 06/29/22 04:00 107 176/90 (118) 99 Room Air 06/29/22 03:00 98 23 173/96 (121) 98 Room Air 06/29/22 02:49 98 Room Air 06/29/22 02:00 75 18 174/89 (122) 99 Room Air 06/29/22 01:00 78 17 172/85 (131) 98 Room Air 06/29/22 01:00 78 06/29/22 00:01 96 Room Air 06/29/22 00:00 85 22 178/94 (122) 97 Room Air 06/28/22 23:00 80 18 173/83 (105) 99 Room Air 06/28/22 22:45 100 Room Air 06/28/22 22:00 73 32 169/85 (125) 98 Room Air 06/28/22 21:04 87 17 185/93 (124) 100 Room Air 06/28/22 21:00 73 11 190/96 (134) 99 Room Air 06/28/22 20:00 37.2 06/28/22 20:00 73 20 175/80 (125) 98 Room Air 06/28/22 20:00 96 Room Air 06/28/22 19:33 99 Room Air 06/28/22 19:00 71 22 169/99 (128) 98 Room Air 06/28/22 19:00 71 06/28/22 18:00 69 12 155/68 (97) 98 Room Air 06/28/22 17:00 63 12 166/88 (114) 100 Room Air 06/28/22 16:00 96 Room Air 06/28/22 16:00 36.5 06/28/22 15:00 78 21 170/84 (112) 98 Room Air 06/28/22 14:12 98 Room Air 06/28/22 14:00 62 21 139/67 (91) Room Air 06/28/22 13:23 66 06/28/22 13:00 75 20 Room Air 06/28/22 12:00 37.0 06/28/22 12:00 80 11 160/117 (131) 99 Room Air 06/28/22 12:00 96 Room Air 06/28/22 11:00 69 19 152/73 (99) 99 Room Air 06/28/22 10:14 99 Room Air 06/28/22 10:00 63 21 153/87 (109) 99 Room Air 06/28/22 09:00 64 22 165/84 (111) 98 Room Air 06/28/22 08:00 96 Room Air 06/28/22 08:00 66 15 171/96 (121) 99 Room Air 06/28/22 08:00 37.0 I & O 06/29/22 07:00 Intake Total 3055 ml Output Total 4050 ml Balance -995 ml Capillary Refill : Less Than 3 Seconds General Appearance: No Apparent Distress, WD/WN, Chronically ill HEENT: Normal ENT Inspection, Moist Mucous Membranes; No Scleral Icterus (L), No Scleral Icterus (R) Neck: Normal Inspection, Supple Respiratory: Lungs Clear, Normal Breath Sounds Cardiovascular: Regular Rate, Rhythm, No Murmur Peripheral Pulses: 3+ Dorsalis Pedis (R), 3+ Left Dors-Pedis (L), 3+ Radial Pulses (R), 3+ Radial Pulses (L) Gastrointestinal: soft, distended (mild, patient reports improved from yesterday); No guarding, No rebound, No tenderness Extremity: Non Tender, No Calf Tenderness; No Calf Tenderness Neurologic/Psychiatric: Alert, Oriented x3, No Motor/Sensory Deficits, Normal Mood/Affect Skin: Normal Color, Warm/Dry Lymphatic: No Adenopathy Results Lab Laboratory Tests 06/28/22 08:57: White Blood Count 13.6H, Red Blood Count 3.74L, Hemoglobin 10.8L, Hematocrit 32L , Mean Corpuscular Volume 84, Mean Corpuscular Hemoglobin 29, Mean Corpuscular Hemoglobin Concent 34, Red Cell Distribution Width 15.8H, Platelet Count 219, Mean Platelet Volume 10.5, Immature Granulocyte % (Auto) 4, Neutrophils (%) (Auto) 77H, Lymphocytes (%) (Auto) 12, Monocytes (%) (Auto) 5, Eosinophils (%) (Auto) 2, Basophils (%) (Auto) 0, Neutrophils # (Auto) 10.5H, Lymphocytes # (Auto) 1.7, Monocytes # (Auto) 0.7, Eosinophils # (Auto) 0.2, Basophils # (Auto) 0.1, Immature Granulocyte # (Auto) 0.5H, Neutrophils % (Manual) 84, Lymphocytes % (Manual) 9, Monocytes % (Manual) 5, Eosinophils % (Manual) 2, Polychromasia SLIGHT, Sodium Level 138, Potassium Level 3.2L, Chloride Level 104, Carbon Dioxide Level 23, Anion Gap 11, Blood Urea Nitrogen 7, Creatinine 0.85, Estimat Glomerular Filtration Rate 95, BUN/Creatinine Ratio 8, Glucose Level 109H, Calcium Level 8.1L, Corrected Calcium 9.0, Total Bilirubin 1.3H, Aspartate Amino Transf (AST/SGOT) 49H, Alanine Aminotransferase (ALT/SGPT) 53, Alkaline Phosphatase 119, Total Protein 6.3L, Albumin 2.9L 06/28/22 20:28: Potassium Level 3.2L, Magnesium Level 1.8 06/29/22 04:51: White Blood Count 10.9, Red Blood Count 3.64L, Hemoglobin 10.4L, Hematocrit 31L, Mean Corpuscular Volume 85, Mean Corpuscular Hemoglobin 29, Mean Corpuscular Hemoglobin Concent 34, Red Cell Distribution Width 16.0H, Platelet Count 246, Mean Platelet Volume 10.4, Immature Granulocyte % (Auto) 3, Neutrophils (%) (Auto) 74, Lymphocytes (%) (Auto) 16, Monocytes (%) (Auto) 6, Eosinophils (%) (Auto) 2, Basophils (%) (Auto) 0, Neutrophils # (Auto) 8.0H, Lymphocytes # (Auto) 1.7, Monocytes # (Auto) 0.6, Eosinophils # (Auto) 0.2, Basophils # (Auto) 0.0, Immature Granulocyte # (Auto) 0.3H, Sodium Level 139, Potassium Level 3.5L, Chloride Level 105, Carbon Dioxide Level 23, Anion Gap 11, Blood Urea Nitrogen 6L, Creatinine 0.79, Estimat Glomerular Filtration Rate 97, BUN/Creatinine Ratio 8, Glucose Level 99, Calcium Level 8.3L, Corrected Calcium 9.2, Total Bilirubin 0.9, Aspartate Amino Transf (AST/SGOT) 39H, Alanine Aminotransferase (ALT/SGPT) 44, Alkaline Phosphatase 109, Total Protein 6.1L, Albumin 2.9L Microbiology 06/26/22 C. difficile GDH Antigen & Toxins - Final, Complete 06/25/22 Blood Culture - Preliminary, Resulted No growth 06/23/22 MRSA Screen - Final, Complete Assessment/Plan Assessment/Plan Assessment/Plan Date of Exam:06/28/22 CT ABDOMEN/PELVIS W PROCEDURE: CT abdomen and pelvis with contrast. TECHNIQUE: Multiple contiguous axial images were obtained through the abdomen and pelvis after administration of intravenous contrast. Auto Exposure Controls were utilized during the CT exam to meet ALARA standards for radiation dose reduction. All CT scans use one or more of the following dose optimizing techniques: Automated exposure control, MA and/or KvP adjustment based on patient size and exam type or iterative reconstruction. INDICATION: Inferior mesenteric venous phlebitis and mural thickening of sigmoid colon. COMPARISON: 06/23/2022. FINDINGS: There has been development of moderate amount of bilateral pleural fluid with subjacent atelectasis in the lung bases. No focal hepatic, gallbladder, pancreatic, adrenal gland, or splenic lesion is identified. Kidneys are also stable and unremarkable. Similar to the previous study, there is moderate mural thickening at the sigmoid colon with surrounding edema and inflammation suggestive of diverticulitis. There is no evidence of pericolonic fluid collection to indicate abscess, although there is nonopacification of left inferior mesenteric vein with mild surrounding edema reaching the level of the confluence with splenic vein. Apparent filling defect extends into the confluence of portal vein with a slight progression of thrombus into portal vein when compared to previous study. There is no evidence of appendiceal inflammation. Unopacified bladder is unremarkable. Fat is herniated into the right inguinal canal. 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 There has been mild worsening of the extent of venous thrombus into the main portal vein, and bilateral pleural effusions have developed. Inf. mesenteric venous phlebitis RLQ and LLQ abdominal pain- currently no pain Leukocytosis - Currently in normal range today Diarrhea Mural thickening of sigmoid colon Bacteremia - Blood cultures resulted in E. Coli infection initial cultures susceptible to all ABX tested- Started on Cefzolin-DC Zosyn Right Inguinal hernia Stool study was negative for C. Diff. Zofran prn, and lovenox for anticoagulation. DINAH PINO DO 06/29/22 1601: Subjective Subjective/Events-last exam Feeling better. Tolerating diet. Not having any abdominal pain at this time. Breathing improving. Ct scan showed slight progression of clot to portal vein and mural thickening sigmoid. Objective Exam General Appearance: No Apparent Distress, Chronically ill HEENT: PERRL/EOMI, Normal ENT Inspection Neck: Normal Inspection, Supple Respiratory: Chest Non Tender, No Accessory Muscle Use, No Respiratory Distress Cardiovascular: Regular Rate, Rhythm, No JVD Gastrointestinal: soft, distended (minimal); No guarding, No rebound, No tender ness Extremity: Non Tender, No Calf Tenderness Neurologic/Psychiatric: Alert, Oriented x3, No Motor/Sensory Deficits, Normal Mood/Affect Skin: Normal Color, Warm/Dry Lymphatic: No Adenopathy Assessment/Plan Assessment/Plan Assessment/Plan Inf. mesenteric venous phlebitis RLQ and LLQ abdominal pain-improved Leukocytosis - Currently in normal range today Diarrhea Mural thickening of sigmoid colon Bacteremia - Blood cultures resulted in E. Coli infection initial cultures susceptible to all ABX tested- Started on Cefzolin-DC Zosyn Right Inguinal hernia Patient feeling well, advance diet as tolerates Anticoagulated on Lovenox 90mg BID would need to be on approximately 6 months and reevaluate thrombus Patient will need colonoscopy outpatient once can come off anticoagulation to evaluate sigmoid. Supervisory-Addendum Brief Verification & Attestation Participated in pt care: history, MDM, physical Personally performed: exam, history, MDM, supervision of care Care discussed with: Medical Student Procedures: n/a Results interpretation: Verified all documentation Verification and Attestation of Medical Student E/M Service A medical student performed and documented this service in my presence. I reviewed and verified all information documented by the medical student and made modifications to such information, when appropriate. I personally performed the physical exam and medical decision making. Dinah Pino, Jun 29, 2022,16:01 IAM GALLO Jun 29, 2022 07:14 DINAH PINO DO Jun 29, 2022 16:01
--- NOTE | 2022-06-29 08:27 | Progress Note - Hospitalist ---
Subjective HPI/CC On Admission Date Seen by Provider: Jun 29, 2022 Time Seen by Provider: 09:00 Subjective/Events-last exam Pt is doing a lot better CT showed worsening of the bowel but clinically he is improved so will advance diet Will move to 4th floor [facility] PT and OT Review of Systems General: Fatigue, Malaise Gastrointestinal: Abdominal Pain Objective Exam Vital Signs Vital Signs Date Time Temp Pulse Resp B/P (MAP) Pulse Ox O2 Delivery O2 Flow Rate FiO2 06/30/22 04:36 37.5 70 18 151/71 (97) 96 Room Air 06/27/22 06:11 21 Capillary Refill : Less Than 3 Seconds General Appearance: No Apparent Distress, WD/WN, Chronically ill Respiratory: Lungs Clear, Normal Breath Sounds Cardiovascular: Regular Rate, Rhythm Gastrointestinal: Normal Bowel Sounds, No Organomegaly, No Pulsatile Mass, Soft, Tenderness Neurologic/Psychiatric: Alert, Oriented x3, No Motor/Sensory Deficits, Normal Mood/Affect Results/Procedures Lab Laboratory Tests 06/30/22 05:11 Patient resulted labs reviewed. Assessment/Plan Assessment and Plan Assess & Plan/Chief Complaint Sepsis due to E. 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
[2022-06-29] MEDS: PSYLLIUM POWDER (METAMUCIL) 5.8 GM PACKET PO SCH (08:36)
[2022-06-29] MEDS: eZETimibe 10 MG (ZETIA) TABLET PO SCH (08:37)
[2022-06-29] MEDS: LOSARTAN 100 MG (COZAAR) TABLET PO SCH (08:37)
[2022-06-29] MEDS: ASPIRIN E.C. 81 MG (ECOTRIN) TAB PO SCH (08:37)
[2022-06-29] MEDS: SERTRALINE 100 MG (ZOLOFT) TAB PO SCH (08:37)
[2022-06-29] MEDS: FAMOTIDINE 20 MG (PEPCID) TABLET PO SCH (08:38)
--- NOTE | 2022-06-29 08:45 | Discharge Inst-Simple/Standard ---
Discharge Inst-Standard Patient Instructions/Follow Up Plan of Care/Instructions/FU: 2 years Alvarez for repeat colonoscopy. Any issues before that be seen at that time. Activity as Tolerated: Yes Discharge Diet: Regular Diet DINAH VELASQUEZ DO Jun 29, 2022 08:45
--- NOTE | 2022-06-29 09:30 | Physical Therapy Progress Note ---
Therapy Progress Note Patient up independently without difficulty. Patient observed independently toileting and with all bed mobility and transfers. No skilled PT indicated. 1 TOBIN SAM PT Jun 29, 2022 09:30
--- NOTE | 2022-06-29 09:45 | Occ Therapy Progress Note ---
Therapy Progress Note Orders received and chart reviewed. PT reported independence with ambulation and toileting/toileting hygiene while in room. Pt reported not having any trouble taking care of himself and does not foresee needing OT services. Pt will be d/c from skilled OT services at this time. 1 visit Kori Washington OT Jun 29, 2022 09:45
[2022-06-29] MEDS: ENOXAPARIN 100 MG/1 ML (LOVENOX) SYR SC SCH ×2 (13:33→21:38)
[2022-06-29] MEDS: diphenhydrAMINE 25 MG TAB (BENADRYL) PO PRN (13:33)
[2022-06-29 16:00] VITALS: BP 142/76
[2022-06-29 19:53] VITALS: BP 162/78
[2022-06-29] MEDS ORDERED: amLODIPine 5 MG (NORVASC) TAB PO SCH (21:00)
[2022-06-30 00:12] VITALS: BP 148/71
[2022-06-30] MEDS: RT-ALBUTEROL/IPRATROPIUM 3 ML (DUONEB) VIAL INH SCH ×3 (02:35→10:24)
[2022-06-30 04:36] VITALS: BP 151/71
[2022-06-30 05:30] LABS: BASOPHILS # (AUTO) 0.1 10^3/uL (0.0-0.1); BASOPHILS % (AUTO) 1 % (0-10); EOSINOPHILS # (AUTO) 0.3 10^3/uL (0.0-0.3); EOSINOPHILS % (AUTO) 3 % (0-10); HEMATOCRIT 33 % (40-54); HEMOGLOBIN 11.5 g/dL (13.3-17.7); LYMPHOCYTES # (AUTO) 1.9 10^3/uL (1.0-4.0); LYMPHOCYTES % (AUTO) 20 % (12-44); MEAN CORPUSCULAR HEMOGLOBIN 30 pg (25-34); MEAN CORPUSCULAR HGB CONC 35 g/dL (32-36); MEAN CORPUSCULAR VOLUME 85 fL (80-99); MEAN PLATELET VOLUME 10.3 fL (9.0-12.2); MONOCYTES # (AUTO) 0.6 10^3/uL (0.0-1.0); MONOCYTES % (AUTO) 6 % (0-12); NEUTROPHILS # (AUTO) 6.8 10^3/uL (1.8-7.8); NEUTROPHILS % (AUTO) 70 % (42-75); PLATELET COUNT 298 10^3/uL (130-400); WHITE BLOOD COUNT 9.8 10^3/uL (4.3-11.0)
[2022-06-30] MEDS: ceFAZolin INJECTION 2,000 MG in NS (IVPB) 50 ML IV SCH (05:40)
[2022-06-30 05:47] LABS: BILIRUBIN,TOTAL 0.7 MG/DL (0.1-1.0); CALCIUM 8.7 MG/DL (8.5-10.1); CREATININE SERUM 0.82 MG/DL (0.60-1.30); POTASSIUM 4.2 MMOL/L (3.6-5.0); TOTAL PROTEIN 6.4 GM/DL (6.4-8.2)
--- NOTE | 2022-06-30 06:51 | Progress Note - Surgery ---
IAM GALLO 06/30/22 0651: Subjective Date Seen by a Provider: Jun 30, 2022 Time Seen by a Provider: 08:20 Subjective/Events-last exam Patient is laying comfortably in bed, was able to get some sleep Abdominal pain is currently well controlled, feels less distended Denies any fever or chills Ambulating well Is tolerating diet well, advanced to puree diet Last bowel movement was yesterday morning, was still diarrhea No complaints of nausea/vomiting Denies any SOB Labs reviewed Objective Exam Vital Signs Date Time Temp Pulse Resp B/P (MAP) Pulse Ox O2 Delivery O2 Flow Rate FiO2 06/30/22 04:36 37.5 70 18 151/71 (97) 96 Room Air 06/30/22 02:35 99 Room Air 06/30/22 00:12 37.0 75 18 148/71 (96) 96 Room Air 06/29/22 21:43 98 Room Air 06/29/22 20:53 95 Room Air 06/29/22 19:53 37.4 86 19 162/78 (106) 95 Room Air 06/29/22 18:39 96 Room Air 06/29/22 16:00 37.1 88 18 142/76 (98) 94 Room Air 06/29/22 14:55 94 Room Air 06/29/22 14:40 37.1 76 20 133/76 (95) 94 Room Air 06/29/22 12:37 105 06/29/22 12:00 37.0 06/29/22 12:00 84 19 143/108 (120) 99 Room Air 06/29/22 11:00 87 132/84 (100) 97 Room Air 06/29/22 10:22 100 Room Air 06/29/22 10:00 82 145/85 (105) 99 Room Air 06/29/22 09:00 91 22 134/78 (96) 97 Room Air 06/29/22 08:00 80 100 Room Air 06/29/22 08:00 94 Room Air 06/29/22 07:57 37.1 06/29/22 07:53 100 Room Air 06/29/22 07:18 80 06/29/22 07:00 72 19 168/92 (117) 99 Room Air I & O 06/30/22 07:00 Intake Total 1380 ml Balance 1380 ml Capillary Refill : Less Than 3 Seconds General Appearance: No Apparent Distress, WD/WN, Chronically ill HEENT: PERRL/EOMI, Normal ENT Inspection Neck: Normal Inspection, Supple Respiratory: Lungs Clear, Normal Breath Sounds Cardiovascular: Regular Rate, Rhythm, No Edema Peripheral Pulses: 3+ Dorsalis Pedis (R), 3+ Left Dors-Pedis (L), 3+ Radial Pulses (R), 3+ Radial Pulses (L) Gastrointestinal: soft, distended (minimal, improving still from yesterday); No guarding, No rebound, No tenderness Extremity: Non Tender, No Calf Tenderness, No Pedal Edema Neurologic/Psychiatric: Alert, Oriented x3, No Motor/Sensory Deficits, Normal Mood/Affect Skin: Normal Color, Warm/Dry Lymphatic: No Adenopathy Results Lab Laboratory Tests 06/30/22 05:11: White Blood Count 9.8, Red Blood Count 3.90L, Hemoglobin 11.5L, Hematocrit 33L, Mean Corpuscular Volume 85, Mean Corpuscular Hemoglobin 30, Mean Corpuscular Hemoglobin Concent 35, Red Cell Distribution Width 16.5H, Platelet Count 298, Mean Platelet Volume 10.3, Immature Granulocyte % (Auto) 1, Neutrophils (%) (Auto) 70, Lymphocytes (%) (Auto) 20, Monocytes (%) (Auto) 6, Eosinophils (%) (Auto) 3, Basophils (%) (Auto) 1, Neutrophils # (Auto) 6.8, Lymphocytes # (Auto) 1.9, Monocytes # (Auto) 0.6, Eosinophils # (Auto) 0.3, Basophils # (Auto) 0.1, Immature Granulocyte # (Auto) 0.1, Sodium Level 137, Potassium Level 4.2, Chloride Level 104, Carbon Dioxide Level 23, Anion Gap 10, Blood Urea Nitrogen 9, Creatinine 0.82, Estimat Glomerular Filtration Rate 96, BUN/Creatinine Ratio 11, Glucose Level 98, Calcium Level 8.7, Corrected Calcium 9.5, Total Bilirubin 0.7, Aspartate Amino Transf (AST/SGOT) 35H, Alanine Aminotransferase (ALT/SGPT) 36, Alkaline Phosphatase 114, Total Protein 6.4, Albumin 3.0L Microbiology 06/26/22 C. 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 Coli infection initial cultures susceptible to all ABX tested- Continue on Cefzolin Right Inguinal hernia C.Diff Negative DINAH PINO DO 06/30/222022: Subjective Subjective/Events-last exam Patient feeling well. Tolerating diet. Not having significant abdominal pain. Not feeling distended. Wanting to go home. Has bowel function. Denies nausea vomiting fever sweats chills shortness of breath or chest pain. Objective Exam General Appearance: No Apparent Distress, WD/WN, Chronically ill HEENT: PERRL/EOMI, Normal ENT Inspection Neck: Normal Inspection, Supple Respiratory: Chest Non Tender, No Accessory Muscle Use, No Respiratory Distress Cardiovascular: Regular Rate, Rhythm, No JVD Gastrointestinal: non tender, soft Extremity: Non Tender, No Calf Tenderness Neurologic/Psychiatric: Alert, Oriented x3 Skin: Normal Color, Warm/Dry Lymphatic: No Adenopathy Assessment/Plan Assessment/Plan Assessment/Plan Inf. mesenteric venous phlebitis RLQ and LLQ abdominal pain-improved Leukocytosis Diarrhea Mural thickening of sigmoid colon Bacteremia - Blood cultures resulted in E. Coli infection initial cultures susceptible to all ABX tested- Started on Cefzolin-DC Zosyn Right Inguinal hernia Patient feeling better and wanting to go home Anticoagulated -on Lovenox 90mg BID convert to oral anticoagulant- would need to be on approximately 6 months and reevaluate thrombus Patient will need colonoscopy outpatient once can come off anticoagulation to evaluate sigmoid. Patient if any change in condition to be reevaluated at that time which he understands. Supervisory-Addendum Brief Verification & Attestation Participated in pt care: history, MDM, physical Personally performed: exam, history, MDM, supervision of care Care discussed with: Medical Student Procedures: n/a Results interpretation: Verified all documentation Verification and Attestation of Medical Student E/M Service A medical student performed and documented this service in my presence. I reviewed and verified all information documented by the medical student and made modifications to such information, when appropriate. I personally performed the physical exam and medical decision making. Dinah Pino, Jun 30, 2022,20:28 IAM GALLO Jun 30, 2022 06:51 DINAH PINO DO Jun 30, 2022 20:23
[2022-06-30] MEDS: SERTRALINE 100 MG (ZOLOFT) TAB PO SCH (08:10)
[2022-06-30] MEDS: ASPIRIN E.C. 81 MG (ECOTRIN) TAB PO SCH (08:10)
[2022-06-30] MEDS: FAMOTIDINE 20 MG (PEPCID) TABLET PO SCH (08:10)
[2022-06-30] MEDS: LOSARTAN 100 MG (COZAAR) TABLET PO SCH (08:10)
[2022-06-30] MEDS: eZETimibe 10 MG (ZETIA) TABLET PO SCH (08:11)
[2022-06-30] MEDS: PSYLLIUM POWDER (METAMUCIL) 5.8 GM PACKET PO SCH (08:11)
[2022-06-30 08:12] VITALS: BP 139/74
[2022-06-30] MEDS: ENOXAPARIN 100 MG/1 ML (LOVENOX) SYR SC SCH (10:16)
[2022-06-30] MEDS ORDERED: CEPH500T PO (11:15)
[2022-06-30] MEDS ORDERED: APIX5TAB PO (11:15)
--- NOTE | 2022-06-30 11:15 | Discharge Summary ---
Discharge Summary Hospital Course Was the Problem List Reviewed?: Yes Problems/Dx: (1) Mesenteric vein thrombosis Status: Acute (2) Lactic acid acidosis Status: Acute (3) HTN (hypertension) Status: Chronic (4) Normocytic anemia Status: Acute (5) Bacteremia Status: Acute (6) Acute renal failure Status: Acute Qualifiers: Qualified Codes: N17.9 - Acute kidney failure, unspecified (7) Hypokalemia Status: Acute (8) Sepsis Qualifiers: Qualified Codes: A41.51 - Sepsis due to Escherichia coli [e. coli]; R65.20 - Severe sepsis without septic shock; N17.9 - Acute kidney failure, unspecified (9) Diverticulitis Hospital Course Date of Admission: Jun 23, 2022 at 18:35 Admission Diagnosis : Family Physician/Provider: [facility] Date of Discharge: 06/30/22 Discharge Diagnosis: [ ] Hospital Course: Patient is a 67-year-old male with a history of diverticulosis, HTN, and HLD who presented to the ED on 06/23 with a 4 day history of N/V, diarrhea, subjective fever, and lower abdominal pain with symptoms worsening on the day of admission. On admission, the patient was found to have lactic acidosis and sepsis with a blood culture growing E. coli for which the patient was placed on Zosyn. CT of t he abdomen and pelvis showed inferior mesenteric thrombophlebitis and diverticular disease of the sigmoid with mural wall thickening for which the patient was placed on lovenox. The patient's symptoms improved throughout his stay. A repeat CT of the abdomen and pelvis on 06/28 again showed diverticular disease of the sigmoid with mural wall thickening and inferior mesenteric thromb ophlebitis, but the patient showed signs of clinical improvement and was able to tolerate advancing their diet. The patient is being discharged home on 06/30. ARABELLA ALLEN Jun 30, 2022 11:28 Labs and Pending Lab Test: Laboratory Tests 06/30/22 05:11: White Blood Count 9.8, Red Blood Count 3.90L, Hemoglobin 11.5L, Hematocrit 33L, Mean Corpuscular Volume 85, Mean Corpuscular Hemoglobin 30, Mean Corpuscular Hemoglobin Concent 35, Red Cell Distribution Width 16.5H, Platelet Count 298, Mean Platelet Volume 10.3, Immature Granulocyte % (Auto) 1, Neutrophils (%) (Auto) 70, Lymphocytes (%) (Auto) 20, Monocytes (%) (Auto) 6, Eosinophils (%) (Auto) 3, Basophils (%) (Auto) 1, Neutrophils # (Auto) 6.8, Lymphocytes # (Auto) 1.9, Monocytes # (Auto) 0.6, Eosinophils # (Auto) 0.3, Basophils # (Auto) 0.1, Immature Granulocyte # (Auto) 0.1, Sodium Level 137, Potassium Level 4.2, Chlori de Level 104, Carbon Dioxide Level 23, Anion Gap 10, Blood Urea Nitrogen 9, Creatinine 0.82, Estimat Glomerular Filtration Rate 96, BUN/Creatinine Ratio 11, Glucose Level 98, Calcium Level 8.7, Corrected Calcium 9.5, Total Bilirubin 0.7, Aspartate Amino Transf (AST/SGOT) 35H, Alanine Aminotransferase (ALT/SGPT) 36, Alkaline Phosphatase 114, Total Protein 6.4, Albumin 3.0L Microbiology 06/26/22 C. difficile GDH Antigen & Toxins - Final, Complete 06/25/22 Blood Culture - Preliminary, Resulted No growth 06/23/22 MRSA Screen - Final, Complete Home Meds Active Eliquis (Apixaban) 5 Mg Tablet 5 Mg PO BID Cephalexin 500 Mg Tablet 500 Mg PO TID Reported Fiber Therapy Powder (Methylcellulose (with Sugar)) 2 Gram/19 Gram Powder 4 Gm PO DAILY Ibuprofen 200 Mg Capsule 800 Mg PO Q8H PRN Aspirin EC (Aspirin) 81 Mg Tablet.dr 81 Mg PO DAILY Acid Order Analyst (FAMOTIDINE) (Famotidine) 20 Mg Tablet 20 Mg PO DAILY Hydrocodone-Acetamin 10-325 mg (Hydrocodone/Acetaminophen) 10 Mg-325 Mg Tablet 1 Ea PO Q4H PRN Ezetimibe 10 Mg Tablet 10 Mg PO DAILY Sertraline HCl 100 Mg Tablet 100 Mg PO DAILY Pravastatin Sodium 40 Mg Tablet 40 Mg PO DAILY Losartan Potassium 100 Mg Tablet 100 Mg PO DAILY Hydrochlorothiazide 25 Mg Tablet 25 Mg PO DAILY Ondansetron Odt (Ondansetron) 4 Mg Tab.rapdis 4 Mg PO Q8H PRN Assessment/Pt Instructions pcp 1 week Discharge Planning: <30 minutes discharge planning Discharge Instructions Discharge Diet: Regular Diet Activity as Tolerated: Yes Discharge Physical Examination Vital Signs Vital Signs Date Time Temp Pulse Resp B/P (MAP) Pulse Ox O2 Delivery O2 Flow Rate FiO2 06/30/22 10:24 94 Room Air 06/30/22 08:12 36.4 80 18 139/74 (95) 06/27/22 06:11 21 General Appearance: No Apparent Distress, WD/WN, Chronically ill Allergies: Coded Allergies: clonidine (Unverified Allergy, Unknown, 12/18/14) lisinopril (Unverified Allergy, Unknown, 12/18/14) metoprolol (Unverified Allergy, Unknown, 12/18/14) Discharge Summary Date of Admission Jun 23, 2022 at 18:35 Date of Discharge Discharge Date: Jun 30, 2022 Discharge Diagnosis Sepsis due to E. 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
--- NOTE | 2022-06-30 11:28 | Progress Note ---
ARABELLA ALLEN 06/30/22 1128: Progress Note Patient is a 67-year-old male with a history of diverticulosis, HTN, and HLD who presented to the ED on 06/23 with a 4 day history of N/V, diarrhea, subjective fever, and lower abdominal pain with symptoms worsening on the day of admission. On admission, the patient was found to have lactic acidosis and sepsis with a blood culture growing E. coli for which the patient was placed on Zosyn. CT of the abdomen and pelvis showed inferior mesenteric thrombophlebitis and diverticular disease of the sigmoid with mural wall thickening for which the patient was placed on lovenox. The patient's symptoms improved throughout his stay. A repeat CT of the abdomen and pelvis on 06/28 again showed diverticular disease of the sigmoid with mural wall thickening and inferior mesenteric thrombophlebitis, but the patient showed signs of clinical improvement and was able to tolerate advancing their diet. The patient is being discharged home on 06/30. LIUDMILA GOLDEN DO 06/30/222038: Supervisory-Addendum Brief Verification & Attestation Participated in pt care: history, MDM, physical Personally performed: exam, history, MDM, supervision of care Care discussed with: Medical Student Procedures: n/a Results interpretation: Verified all documentation Verification and Attestation of Medical Student E/M Service A medical student performed and documented this service in my presence. I reviewed and verified all information documented by the medical student and made modifications to such information, when appropriate. I personally performed the physical exam and medical decision making. Liudmila Golden Jun 30, 2022,20:40 ARABELLA ALLEN Jun 30, 2022 11:28 LIUDMILA GOLDEN DO Jun 30, 2022 20:39
[2022-06-30 12:05] VITALS: BP 132/65
[2022-06-30 14:03] VITALS: BP 132/65
== END 2022-06-30 14:03 | disposition home or self-care (01) | DRG 871 ==
LOC: EDUNIT# 12:30 → ER FS 12:32 → ICU 18:35 → 4TH 06-29 13:41
PROVIDERS: ADMIT Family Medicine; ATTEND Internal Medicine
DX: A41.51 Sepsis due to Escherichia coli [E. coli] (principal); K55.059 Acute (reversible) ischemia of intestine, part and extent unspecified; K57.32 Diverticulitis of large intestine without perforation or abscess without bleeding; E87.20 Acidosis, unspecified; I82.890 Acute embolism and thrombosis of other specified veins; N17.9 Acute kidney failure, unspecified; K59.89 Other specified functional intestinal disorders; I10 Essential (primary) hypertension; E78.00 Pure hypercholesterolemia, unspecified; D64.9 Anemia, unspecified; D69.6 Thrombocytopenia, unspecified; E87.6 Hypokalemia; K21.9 Gastro-esophageal reflux disease without esophagitis; K30 Functional dyspepsia; K40.90 Unilateral inguinal hernia, without obstruction or gangrene, not specified as recurrent; Z87.891 Personal history of nicotine dependence; Z79.82 Long term (current) use of aspirin
CPT/HCPCS: 36415; 74177; 80048; 80053; 81000; 83605; 83735; 84100; 84132; 85007; 85025; 85027; 85049; 85610; 85730; 86141; 87040; 87077; 87081; 87186; 87324; 87449; 94640; 94760; 96361; 96365; 96367; 96368; 96375; Q9967

== ENCOUNTER → 2022-11-10 | Outpatient (CLI) | payer MEDICARE, OTHER ==
[~2022-11-10] MED LIST changes: +APIX5TAB PO; +ASPI-1238 PO; +CATHETER FLUSH 10 ML SYR IV PRN; +CEPH500T PO; +EZET10TA49 PO; +FAMO20TA3 PO; +HOLD METFORMIN - RECEIVED CONTRAST 20 ML VIAL IV SCH; +HYDR-3820 PO; +HYDR25TA4 PO; +IBUP-2185 PO; +IOHEXOL 350 MG/ML 100 ML (OMNIPAQUE 350) VIAL IV ONE; +LOSA100T57 PO; +METH454P2 PO; +NS 100 ML (IVPB) BAG IV ONE; +ONDA4TAB11 PO; +PRAV40TA2 PO; +SERT-414 PO
[2022-11-10 11:02] LABS: CREATININE SERUM 1.05 MG/DL (0.60-1.30)
--- NOTE | 2022-11-10 12:33 | Diagnostic Imaging Report ---
PROCEDURE: CT abdomen and pelvis with contrast. TECHNIQUE: Multiple contiguous axial images were obtained through the abdomen and pelvis after administration of intravenous contrast. Auto Exposure Controls were utilized during the CT exam to meet ALARA standards for radiation dose reduction. All CT scans use one or more of the following dose optimizing techniques: automated exposure control, MA and/or KvP adjustment based on patient size and exam type or iterative reconstruction. INDICATION: Elevated liver function studies COMPARISON: 06/28/2022. FINDINGS: There is fatty infiltration of the liver with no bile duct dilatation. There is patency of the left and right intrahepatic portal veins and their primary branches as well as wide patency of the extrahepatic portal vein, this previously had a small amount of clot within it. Clot previously within the splenic vein has resolved and at follow-up I cannot identify any residual or recurrent mesenteric venous thrombus. Some mild perisigmoidal scarring where previously there was extensive diverticulitis. No findings of active or acute diverticulitis at follow-up. No abscess, obstruction, perforation or free gas. The urinary bladder unremarkable. There is no appendicitis. The unobstructed kidneys appeared normal. The pancreas and peripancreatic fat negative. The spleen normal. The adrenals negative. The aorta is nonaneurysmal and patent. IMPRESSION: Resolution of previous features of diverticulitis and apparent resolution of prior mesenteric and portal venous thrombus. No arterial or venous obstruction at follow-up and no findings of acute arterial or venous end organ ischemia. There is fatty infiltration of the liver which appeared otherwise nonfocal and nonacute. No ascites. Normal spleen size. Unobstructed urinary tracts. Dictated by: Dictated on workstation # [id number]
== END ==
LOC: LAB FS 10:06
PROVIDERS: ATTEND Internal Medicine Gastroenterology
DX: R74.8 Abnormal levels of other serum enzymes (principal)
CPT/HCPCS: 36415; 74177; 82565; 84520

== ENCOUNTER → 2023-05-18 | Outpatient (CLI) | payer MEDICARE, OTHER ==
[~2023-05-18] MED LIST changes: -CATHETER FLUSH 10 ML SYR IV PRN; +FAMO-356 PO; -FAMO20TA3 PO; -HOLD METFORMIN - RECEIVED CONTRAST 20 ML VIAL IV SCH; -IOHEXOL 350 MG/ML 100 ML (OMNIPAQUE 350) VIAL IV ONE; -LOSA100T57 PO; +LOSA100T58 PO; -NS 100 ML (IVPB) BAG IV ONE; +RT-ALBUTEROL SULF 2.5 MG/3 ML PRE-MIX VIAL INH ONE
== END ==
LOC: RT 12:41
PROVIDERS: ATTEND Nurse Practitioner Family
DX: R06.02 Shortness of breath (principal)
CPT/HCPCS: 94060; 94726; 94729

== ENCOUNTER → 2023-06-29 | Outpatient (CLI) | payer MEDICARE, OTHER ==
[~2023-06-29] MED LIST changes: -RT-ALBUTEROL SULF 2.5 MG/3 ML PRE-MIX VIAL INH ONE
== END ==
LOC: CARD 08:46
PROVIDERS: ATTEND Internal Medicine Cardiovascular Disease
DX: I25.10 Atherosclerotic heart disease of native coronary artery without angina pectoris (principal); I10 Essential (primary) hypertension
CPT/HCPCS: 93320

== ENCOUNTER 2023-07-01 20:46 | Outpatient (CLI) | payer MEDICARE, OTHER | END 2023-07-02 06:57 | LOC: CANPRECLI → SLEEP 20:46 | PROVIDERS: ATTEND Nurse Practitioner Family | DX: R06.83 Snoring (principal) | CPT/HCPCS: 95810 ==